=== PATIENT | female | born 1955 | race Hispanic/Latino ===

== ENCOUNTER 2017-04-06 22:19 | Inpatient (IN) | payer MEDICARE, OTHER ==
[2017-04-06 22:22] VITALS: BMI 25.8
--- NOTE | 2017-04-06 22:27 | ED PDOC ---
Arrival/HPI - General Time Seen by Provider: 04/06/17 22:23 Historian: Patient, EMS - History of Present Illness Narrative History of Present Illness (Text): 04/06/17 22:23 Philly Sepulveda is a 61 year old female smoker, whose past medical history includes COPD, breast cancer, pasroxysmal atrail fibrillation, and hypertension, who presents to the Emergency department brought in by EMS complaining of worsening shortness of breath and cough throughout today. Patient received multiple nebulizer treatments and IV Solu-medrol in the field, with some improvement. Patient denies any fever, chills, chest pain, nausea, vomiting, diarrhea, neck pain, headache, dizziness, or any other complaints. PMD: Dr. Lyons Time/Duration: Other (today) Symptom Onset: Gradual Symptom Course: Unchanged Activities at Onset: Light Context: Home Past Medical History - Provider Review Nursing Documentation Reviewed: Yes - Tetanus Immunization Tetanus Immunization: Unknown - Cardiac Hx Cardiac Disorders: Yes Hx Cardiac Arrhythmia: Yes (afib) Hx Hypertension: Yes - Pulmonary Hx Respiratory Disorders: Yes Hx Chronic Obstructive Pulmonary Disease (COPD): Yes Hx Emphysema: Yes Hx Pneumonia: Yes - Neurological Hx Neurological Disorder: No - HEENT Hx HEENT Disorder: Yes (uses glasses) - Renal Hx Renal Disorder: No - Endocrine/Metabolic Hx Endocrine Disorders: Yes (Borderline Diabetes) - Hematological/Oncological Hx Blood Disorders: Yes Hx Cancer: Yes (left breast 1993) - Integumentary Hx Dermatological Disorder: No - Musculoskeletal/Rheumatological Hx Falls: No - Gastrointestinal Hx Gastrointestinal Disorders: Yes (IBS) - Genitourinary/Gynecological Hx Genitourinary Disorders: No - Psychiatric Hx Substance Use: No - Surgical History Hx Mastectomy: Yes Hx Orthopedic Surgery: Yes - Anesthesia Hx Anesthesia: Yes Hx Anesthesia Reactions: No Hx Malignant Hyperthermia: No - Suicidal Assessment Feels Threatened In Home Enviroment: No Family/Social History - Physician Review Nursing Documentation Reviewed: Yes Family/Social History: Unknown Family HX Smoking Status: Heavy Smoker > 10 Cigarettes Daily Hx Alcohol Use: Yes Hx Substance Use: No Hx Substance Use Treatment: No Allergies/Home Meds Allergies/Adverse Reactions: Allergies No Known Allergies Allergy (Verified 04/06/17 22:22) Home Medications: Home Meds Medication Instructions Recorded Confirmed Alprazolam [Xanax] 0.25 mg PO Q6 04/06/17 04/06/17 Promethazine/Phenyleph/Codeine 118 ml PO DAILY 04/06/17 04/06/17 [[id number] Syrup] Sotalol HCl [Sotalol AF] 80 mg PO DAILY 04/06/17 04/06/17 Sotalol [Betapace] 40 mg PO HS 04/06/17 04/06/17 Review of Systems - Physician Review All systems were reviewed & negative as marked: Yes - Review of Systems Constitutional: Normal Eyes: Normal ENT: Normal Respiratory: SOB, Cough Cardiovascular: Normal. absent: Chest Pain Gastrointestinal: Normal. absent: Abdominal Pain, Diarrhea, Nausea, Vomiting Genitourinary Female: Normal. absent: Dysuria, Frequency, Hematuria, Urine Output Changes Musculoskeletal: Normal. absent: Back Pain, Neck Pain Skin: Normal. absent: Rash Neurological: Normal. absent: Headache, Dizziness Endocrine: Normal Hemo/Lymphatic: Normal Psychiatric: Normal Physical Exam Vital Signs Reviewed: Yes Vital Signs Temp Pulse Resp BP Pulse Ox 04/06/17 22:30 97.5 F L 88 26 H 155/89 H 90 L Temperature: Afebrile Blood Pressure: Normal Pulse: Regular Respiratory Rate: Normal Appearance: Positive for: Well-Appearing, Non-Toxic, Comfortable Pain Distress: None Mental Status: Positive for: Alert and Oriented X 3 - Systems Exam Head: Present: Atraumatic, Normocephalic Pupils: Present: PERRL Extroacular Muscles: Present: EOMI Conjunctiva: Present: Normal Ears: Present: Normal, NORMAL TM, Normal Canal. No: Erythema, TM Bulging, Fluid Mouth: Present: Moist Mucous Membranes Pharnyx: Present: Normal. No: ERYTHEMA, EXUDATE, TONSILS ENLARGED, Peritonsilar Swelling, Uvular Deviation, Muffled/Hoarse Voice, Strider, Soft Palate/Uvular Edema Nose (External): Present: Atraumatic Nose (Internal): Present: Normal Inspection Neck: Present: Normal Range of Motion Respiratory/Chest: Present: Decreased Breath Sounds (Decreased breath sounds bilaterally). No: Respiratory Distress, Accessory Muscle Use Cardiovascular: Present: Regular Rate and Rhythm, Normal S1, S2. No: Murmurs Abdomen: Present: Normal Bowel Sounds. No: Tenderness, Distention, Peritoneal Signs Back: Present: Normal Inspection Upper Extremity: Present: Normal Inspection. No: Cyanosis, Edema Lower Extremity: Present: Normal Inspection. No: Edema Neurological: Present: GCS=15, CN II-XII Intact, Speech Normal Skin: Present: Warm, Dry, Normal Color. No: Rashes Psychiatric: Present: Alert, Oriented x 3, Normal Insight, Normal Concentration Medical Decision Making ED Course and Treatment: 04/06/17 22:24 Impression: 61 year old female complaining of shortness of breath and cough today. Differential Diagnosis included but are not limited to: COPD exacerbation vs. bronchitis vs. pneumonia vs. CHF Plan: -- EKG -- CXR -- Labs, cardiac enzymes, BNP -- Duoneb -- Reassess and disposition Prior Visits: Notes and results from previous visits were reviewed. On 03/04/2015, pt was seen in the Emergency department for shortness of breath, dry cough, sore throat, and body aches. Pt was admitted to the hospital for further evaluation. Progress Notes: 04/06/17 22:37 Reviewed EKG, NSR at 86 bpm. Septal infarct. Non-specific ST/T wave changes. 04/07/17 00:50 CXR reviewed, shows no acute processes. 04/07/17 01:[address] Lyons, who is aware and agrees with plan. Accepts pt in to his service. Requests ICU consult. 04/07/17 01:[address] Christianson, childcare administrator, who is aware and agrees to evaluate pt. vice president education notified. 04/07/17 02:[address] Christianson, present in Emergency room to re-evaluate pt and who also discussed with Dr. Lyons, states pt can go to Telemetry. Pt will be admitted to Telemetry for COPD exacerbation. - Lab Interpretations Lab Results: 04/06/17 22:57 04/06/17 22:49 Lab Results 04/07/17 00:40: pCO2 43, pO2 42.0 L*, HCO3 26.6, ABG pH 7.40, ABG Total CO2 27.9 , ABG O2 Saturation 81.6 L, ABG O2 Content 18.2, ABG Base Excess 1.4, ABG Hemoglobin 16.6, ABG Carboxyhemoglobin 3.2 H, POC ABG HHb (Measured) 17.7 H, ABG Methemoglobin 0.6, ABG O2 Capacity 22.3, Hgb O2 Saturation 78.5 L, FiO2 28.0 04/06/17 22:57: WBC 8.9 D, RBC 4.73, Hgb 15.9, Hct 45.8, MCV 96.8, MCH 33.6, MCHC 34.7, RDW 12.0, Plt Count 252, MPV 10.6 04/06/17 22:49: Sodium 136, Potassium 4.2, Chloride 100, Carbon Dioxide 25, Anion Gap 15, BUN 10, Creatinine 0.6 L, Est GFR ( Amer) > 60, Est GFR ( Non-Af Amer) > 60, Random Glucose 121 H, Calcium 9.9, Total Bilirubin 1.8 H, AST 33, ALT 29, Alkaline Phosphatase 78, Lactate Dehydrogenase 557, Total Creatine Kinase 109, Troponin I < 0.01, NT-Pro-B Natriuret Pep 104, Total Protein 7.8, Albumin 4.5, Globulin 3.3, Albumin/Globulin Ratio 1.4 04/06/17 22:49: PT 12.3, INR 1.13 H, APTT 28.1 I have reviewed the lab results: Yes - RAD Interpretation Radiology Orders: 04/07/17 00:33 CHEST PORTABLE [RAD] Stat Continuous Improvement Consultant: ED Physician - EKG Interpretation Interpreted by ED Physician: Yes Type: 12 lead EKG - Medication Orders Current Medication Orders: Ceftriaxone Sodium (Rocephin 1 Gram Ivpb) 1 gm in 100 mls @ 200 mls/hr IV ONCE STA PRN Reason: Protocol Stop: 04/07/17 02:07 Azithromycin (Zithromax 500mg In Ns) 500 mg in 250 mls @ 166.667 mls/hr IV STAT STA PRN Reason: Protocol Stop: 04/07/17 03:07 Discontinued Medications Albuterol/Ipratropium (Duoneb 3 Mg/0.5 Mg (3 Ml) Ud) 3 ml IH ONCE STA Stop: 04/06/17 22:30 Last Admin: 04/06/17 22:41 Dose: 3 ml Alprazolam (Xanax) 0.25 mg PO ONCE ONE Stop: 04/07/17 01:33 Last Admin: 04/07/17 01:50 Dose: 0.25 mg - Scribe Statement The provider has reviewed the documentation as recorded by the Mony Chong All medical record entries made by the Mony were at my direction and personally dictated by me. I have reviewed the chart and agree that the record accurately reflects my personal performance of the history, physical exam, medical decision making, and the department course for this patient. I have also personally directed, reviewed, and agree with the discharge instructions and disposition. Disposition/Present on Arrival - Present on Arrival Any Indicators Present on Arrival: No History of DVT/PE: No History of Uncontrolled Diabetes: No Urinary Catheter: No History of Decub. Ulcer: No History Surgical Site Infection Following: None - Disposition Have Diagnosis and Disposition been Completed?: Yes Diagnosis: COPD (chronic obstructive pulmonary disease) with chronic bronchitis Disposition: HOSPITALIZED Disposition Time: 01:47 Patient Plan: Admission Patient Problems: Current Active Problems Problem Status Onset COPD (chronic obstructive pulmonary disease) with chronic bronchitis Acute Condition: GUARDED Referrals: Fernando Lyons MD [Primary Care Provider] - Follow up with primary
[2017-04-06] MEDS ORDERED: Albuterol-Ipratrop 3 mg / 0.5 (3 ml) UD IH STA (22:29)
[2017-04-06 23:17] LABS: ALB/GLOB RATIO 1.4 (1.1-1.8); BILIRUBIN,TOTAL 1.8 mg/dL (0.2-1.3); CALCIUM 9.9 mg/dL (8.4-10.5); GFR AFRICAN-AMERICAN > 60; GLUCOSE,RANDOM 121 mg/dL (70-110); TOTAL PROTEIN 7.8 g/dL (5.8-8.3)
[2017-04-06 23:23] LABS: ALKALINE PHOSPHATASE 78 U/L (38-126); ALT/SGPT 29 U/L (7-56); AST/SGOT 33 U/L (14-36); BLOOD UREA NITROGEN 10 mg/dL (7-21); CARBON DIOXIDE 25 mmol/L (21-33); CHLORIDE 100 mmol/L (98-107); POTASSIUM 4.2 mmol/L (3.6-5.0); SODIUM 136 mmol/L (132-148)
[2017-04-06 23:27] LABS: TROPONIN I < 0.01 ng/mL
[2017-04-06 23:37] LABS: HEMATOCRIT 45.8 % (36.0-48.0); MEAN CELL VOLUME 96.8 fl (80.0-105.0); MEAN CORPUSCULAR HEMOGLOBIN 33.6 pg (25.0-35.0); MEAN CORPUSCULAR HGB CONC 34.7 g/dl (31.0-37.0); MEAN PLATELET VOLUME 10.6 fl (7.0-11.0); WHITE BLOOD COUNT 8.9 10^3/ul (4.5-11.0)
[2017-04-06 23:50] LABS: INR 1.13 (0.93-1.08); PARTIAL THROMBOPLASTIN TIME 28.1 Seconds (25.1-36.5)
[2017-04-07 00:53] LABS: ARTERIAL BLOOD GAS HCO3 26.6 mmol/L (21-28); ARTERIAL BLOOD GAS O2 CAPACITY 22.3 mL/dl (16-24); ARTERIAL BLOOD GAS O2 CONTENT 18.2 ML/dl (15-23); ARTERIAL BLOOD HGB O2 SAT 78.5 % (95.0-98.0); CARBOXYHEMOGLOBIN 3.2 % (0.5-1.5); HHB 17.7 % (0-5); METHEMOGLOBIN 0.6 % (0.0-3.0)
[2017-04-07] MEDS ORDERED: cefTRIAXone 1 gm 1 GM/100 ML BAG IV STA (01:38)
[2017-04-07] MEDS ORDERED: Azithromycin 500MG/NS 250ml 500 MG/250 ML BAG IV STA (01:38)
--- NOTE | 2017-04-07 02:07 | CP.PCM.HP ---
<Krunal Vargas - Last Filed: 04/07/17 02:25> History of Present Illness - History of Present Illness History of Present Illness: CC: SOB Subjective: HPI: Patient is a 61 year old female with past medical history of COPD, breast cancer , paroxysmal atrial fibrillation, hypertension, and anxiety who presents to the emergency department via EMS for evaluation and treatment of worsening shortness of breath and productive cough throughout today. Patient denies specific provoking events. As per ED note the patient received multiple nebulizer treatments and IV Solu-medrol in the field, with some improvement. Denies recent travel and sick contacts. Admits to continued smoking. Patient denies intractable headache, fever, chills, dizziness, blurry vision, ringing in the ears, chest pain,, abdominal pain, nausea, vomiting, diarrhea, constipation, and urinary symptoms. ROS: 12 point review of systems negative except as indicated in HPI PMHx: COPD, breast cancer, paroxysmal atrial fibrillation, and hypertension PSHx: s/p left breast surgery 1992 Family Hx: noncontributory Social Hx: 2 glasses of wine with dinner everyday, smokes 1ppd for 45 years, denies illicit drug use Medications: Please see medication reconciliation Physical Examination: - Constitutional Appears: Non-toxic, No Acute Distress - Head Exam Head Exam: atraumatic, normocephalic - Eye Exam Eye Exam: Normal appearance, PERRL. absent: Scleral icterus - ENT Exam ENT Exam: Mucous Membranes Moist - Neck Exam Neck exam: Normal Inspection - Respiratory Exam Respiratory Exam: decreased breath sounds bilaterally - Cardiovascular Exam Cardiovascular Exam: +S1, +S2. absent: Gallop, JVD - GI/Abdominal Exam GI & Abdominal Exam: Normal Bowel Sounds, absent: Distended, Guarding, Pulsatile Mass, Rebound, Rigid - Extremities Exam Extremities exam: Negative for: calf tenderness - Neurological Exam Neurological exam: Patient is awake, alert, responds to verbal stimuli, answers questions appropriately, follows commands, and moves extremities past midline - Psychiatric Exam Psychiatric exam: Normal Affect, Normal Mood - Skin Skin Exam: warm and dry Assessment and Plan: Patient is a 61 year old female with past medical history of COPD, breast cancer , paroxysmal atrial fibrillation, and hypertension who is admitted for evaluation and treatment of worsening shortness of breath and cough throughout today. Acute on Chronic COPD Exacerbation - duobnebs q4 scheduled - solumedrol 40mg IV q8 - bipap 12 6 30% - antibtiotics- ceftriaxone and azithromycin - abg reviewed and appreciated- hypoxemic, elevated carboxyhemoglobin; repeat abg in AM Paroxysmal Atrial Fibrillation - HR and BP reviewed, trended, and appreciated - EKG reviewed and appreciated- NSR HR 86 bpm, Qtc 437, no defining ST T wave changes - rate control with sotalol 80 mg PO daily - consider cardiology consult pending patients clinical course Hx of Htn - continue sotalol 80 mg PO Daily - consider hydralazine 5mg IV q6 prn SBP > 180, holding parameters- do not administer if HR is > 100 bpm Hx of Anxiety - continue with home xanax Tobacco Abuse - nicotine patch offered - smoking cessation advised - patient education provided on dangers of tobacco abuse Prophylaxis - DVT ppx- subq heparin as per miguel score - GI ppx- famotidine Patient case discussed with and plan approved by attending physician. 04/07/17 01:22 Present on Admission - Present on Admission Any Indicators Present on Admission: No Past Patient History - Tetanus Immunizations Tetanus Immunization: Unknown - Past Social History Smoking Status: Heavy Smoker > 10 Cigarettes Daily - CARDIAC Hx Cardiac Disorders: Yes Hx Cardia Arrhythmia: Yes (afib) Hx Hypertension: Yes - PULMONARY Hx Respiratory Disorders: Yes Hx Chronic Obstructive Pulmonary Disease (COPD): Yes Hx Emphysema: Yes Hx Pneumonia: Yes - NEUROLOGICAL Hx Neurological Disorder: No - HEENT Hx HEENT Problems: Yes (uses glasses) - RENAL Hx Chronic Kidney Disease: No - ENDOCRINE/METABOLIC Hx Endocrine Disorders: Yes (Borderline Diabetes) - HEMATOLOGICAL/ONCOLOGICAL Hx Blood Disorders: Yes Hx Cancer: Yes (left breast 1992) - INTEGUMENTARY Hx Dermatological Problems: No - MUSCULOSKELETAL/RHEUMATOLOGICAL Hx Falls: No - GASTROINTESTINAL Hx Gastrointestinal Disorders: Yes (IBS) - GENITOURINARY/GYNECOLOGICAL Hx Genitourinary Disorders: No - PSYCHIATRIC Hx Substance Use: No - SURGICAL HISTORY Hx Mastectomy: Yes Hx Orthopedic Surgery: Yes - ANESTHESIA Hx Anesthesia: Yes Hx Anesthesia Reactions: No Hx Malignant Hyperthermia: No Meds Allergies/Adverse Reactions: Allergies Allergy/AdvReac Type Severity Reaction Status Date / Time No Known Allergies Allergy Verified 04/10/17 22:04 Results - Vital Signs Recent Vital Signs: Last Vital Signs Temp 97.5 F L 04/06/17 22:30 Pulse 88 04/06/17 22:30 Resp 26 H 04/06/17 22:30 BP 155/89 H 04/06/17 22:30 Pulse Ox 90 L 04/06/17 22:30 - Labs Result Diagrams: 04/06/17 22:57 04/06/17 22:49 Labs: Laboratory Results - last 24 hr 04/06/17 04/06/17 04/06/17 22:49 22:49 22:57 WBC 8.9 D RBC 4.73 Hgb 15.9 Hct 45.8 MCV 96.8 MCH 33.6 MCHC 34.7 RDW 12.0 Plt Count 252 MPV 10.6 PT 12.3 INR 1.13 H APTT 28.1 pCO2 pO2 HCO3 ABG pH ABG Total CO2 ABG O2 Saturation ABG O2 Content ABG Base Excess ABG Hemoglobin ABG Carboxyhemoglobin POC ABG HHb (Measured) ABG Methemoglobin ABG O2 Capacity Hgb O2 Saturation FiO2 Sodium 136 Potassium 4.2 Chloride 100 Carbon Dioxide 25 Anion Gap 15 BUN 10 Creatinine 0.6 L Est GFR ( Amer) > 60 Est GFR (Non-Af Amer) > 60 Random Glucose 121 H Calcium 9.9 Total Bilirubin 1.8 H AST 33 ALT 29 Alkaline Phosphatase 78 Lactate Dehydrogenase 557 Total Creatine Kinase 109 Troponin I < 0.01 NT-Pro-B Natriuret Pep 104 Total Protein 7.8 Albumin 4.5 Globulin 3.3 Albumin/Globulin Ratio 1.4 04/07/17 00:40 WBC RBC Hgb Hct MCV MCH MCHC RDW Plt Count MPV PT INR APTT pCO2 43 pO2 42.0 L* HCO3 26.6 ABG pH 7.40 ABG Total CO2 27.9 ABG O2 Saturation 81.6 L ABG O2 Content 18.2 ABG Base Excess 1.4 ABG Hemoglobin 16.6 ABG Carboxyhemoglobin 3.2 H POC ABG HHb (Measured) 17.7 H ABG Methemoglobin 0.6 ABG O2 Capacity 22.3 Hgb O2 Saturation 78.5 L FiO2 28.0 Sodium Potassium Chloride Carbon Dioxide Anion Gap BUN Creatinine Est GFR ( Amer) Est GFR (Non-Af Amer) Random Glucose Calcium Total Bilirubin AST ALT Alkaline Phosphatase Lactate Dehydrogenase Total Creatine Kinase Troponin I NT-Pro-B Natriuret Pep Total Protein Albumin Globulin Albumin/Globulin Ratio <Fernando Lyons U - Last Filed: 04/11/17 08:00> Results - Vital Signs Recent Vital Signs: Last Vital Signs Temp 97.8 F 04/10/17 08:13 Pulse 68 04/10/17 08:13 Resp 22 04/10/17 08:13 BP 128/75 04/10/17 09:46 Pulse Ox 91 L 04/10/17 08:13 - Labs Result Diagrams: 04/09/17 06:20 04/09/17 06:20 Assessment & Plan - Assessment and Plan (Free Text) Assessment: Assessment and Plan: Patient is a 61 year old female with past medical history of COPD, breast cancer , paroxysmal atrial fibrillation, and hypertension who is admitted for evaluation and treatment of worsening shortness of breath and cough throughout today. Acute on Chronic COPD Exacerbation - duobnebs q4 scheduled - solumedrol 40mg IV q8 - bipap 12 6 30% - antibtiotics- ceftriaxone and azithromycin - abg reviewed and appreciated- hypoxemic, elevated carboxyhemoglobin; repeat abg in AM Paroxysmal Atrial Fibrillation - HR and BP reviewed, trended, and appreciated - EKG reviewed and appreciated- NSR HR 86 bpm, Qtc 437, no defining ST T wave changes - rate control with sotalol 80 mg PO daily - consider cardiology consult pending patients clinical course Hx of Htn - continue sotalol 80 mg PO Daily - consider hydralazine 5mg IV q6 prn SBP > 180, holding parameters- do not administer if HR is > 100 bpm Hx of Anxiety - continue with home xanax Tobacco Abuse - nicotine patch offered - smoking cessation advised - patient education provided on dangers of tobacco abuse Prophylaxis - DVT ppx- subq heparin as per miguel score - GI ppx- famotidine 1.Acute exacerbation of chronic obstructive pulmonary disease with hypoxemia. 2. 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 3. Hypoxic respiratory failure, bilevel positive airway pressure requiring. 4. Acute exacerbation of chronic obstructive pulmonary disease with bronchospasm and wheezing. 5. Leukocytosis with granulocytosis. 6. Hypoxemia. 7. Prediabetes with hemoglobin A1c of 5.9. 8. Hypercholesterolemia with elevated LDL of almost 300. 9. History of paroxysmal atrial fibrillation. 10. Anxiety disorder. 11. Nicotine dependence. 12. Bilateral atelectasis of the right middle lobe, left lower lobe, and left lingula. 13. Sentry lobar emphysema bilaterally. 14. Right upper lobe 3-mm nodule and right lower lobe 5-mm subpleural nodule and 3-mm left lower lobe nodule. 15. Coronary artery calcification. 16. Left clavicle old fracture, unfused. 17. 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 18. Left breast carcinoma, status post left mastectomy and left breast prosthesis. 19. Nonspecific left perinephric stranding. 20. Resolving bronchospasm. 21. History of poor compliance and noncompliance with failure to take medications and medical followup.
[2017-04-07] MEDS ORDERED: Albuterol-Ipratrop 3 mg / 0.5 (3 ml) UD IH SCH (02:15)
[2017-04-07] MEDS: MethylPREDNISolone 40 mg Vial IVP SCH ×3 (03:08→17:32)
[2017-04-07] MEDS ORDERED: DiphenhydrAMINE 12.5 mg/5 ml LIQ UD (5 ml) PO STA (03:09)
[2017-04-07] MEDS: Albuterol-Ipratrop 3 mg / 0.5 (3 ml) UD IH SCH ×5 (05:00→20:20)
--- NOTE | 2017-04-07 05:51 | CP.PCM.CON ---
History of Present Illness - History of Present Illness History of Present Illness: ICU Consult Note for Dr. Christianson Reason for consult: COPD exacerbation 61yo female PMHx COPD, breast cancer, paroxysmal atrial fibrillation, hypertension, and anxiety who presents to the ED with worsening SOB and productive cough. Patient had received multiple nebulizer treatments and IV Solu -medrol in the field, with some improvement. Denies recent travel and sick contacts. Admits to continued smoking. Patient denies intractable headache, fever, chills, dizziness, blurry vision, ringing in the ears, chest pain,, abdominal pain, nausea, vomiting, diarrhea, constipation, and urinary symptoms. PMHx: COPD, breast cancer, paroxysmal atrial fibrillation, and hypertension PSHx: s/p left breast surgery 1992 Family Hx: noncontributory Social Hx: 2 glasses of wine with dinner everyday, smokes 1ppd for 45 years, denies illicit drug use Medications: Please see medication reconciliation Review of Systems - Review of Systems All systems: reviewed and no additional remarkable complaints except - Constitutional Constitutional: As Per HPI. absent: Chills, Fever - EENT Eyes: As Per HPI. absent: Blurred Vision Ears: As Per HPI. absent: Dizziness Nose/Mouth/Throat: As Per HPI. absent: Sore Throat - Cardiovascular Cardiovascular: As Per HPI. absent: Chest Pain, Leg Edema - Respiratory Respiratory: As Per HPI, Cough, Dyspnea - Gastrointestinal Gastrointestinal: As Per HPI. absent: Abdominal Pain, Constipation, Diarrhea, Nausea, Vomiting - Genitourinary Genitourinary: As Per HPI. absent: Dysuria - Musculoskeletal Musculoskeletal: As Per HPI. absent: Numbness, Tingling - Integumentary Integumentary: As Per HPI. absent: Dry Skin - Neurological Neurological: As Per HPI. absent: Dizziness, Headaches - Endocrine Endocrine: As Per HPI. absent: Polydipsia, Polyuria - Hematologic/Lymphatic Hematologic: As Per HPI. absent: Easy Bleeding, Easy Bruising Past Patient History - Tetanus Immunizations Tetanus Immunization: Unknown - Past Social History Smoking Status: Light Smoker < 10 Cigarettes Daily - CARDIAC Hx Hypertension: Yes - PULMONARY Hx Chronic Obstructive Pulmonary Disease (COPD): Yes - NEUROLOGICAL Hx Neurological Disorder: No - HEENT Hx HEENT Problems: Yes (uses glasses) - RENAL Hx Chronic Kidney Disease: No - ENDOCRINE/METABOLIC Hx Endocrine Disorders: Yes (Borderline Diabetes) - HEMATOLOGICAL/ONCOLOGICAL Hx Blood Disorders: Yes Hx Cancer: Yes (left breast 1993) - INTEGUMENTARY Hx Dermatological Problems: No - MUSCULOSKELETAL/RHEUMATOLOGICAL Hx Falls: Yes - GASTROINTESTINAL Hx Gastrointestinal Disorders: Yes (IBS) - GENITOURINARY/GYNECOLOGICAL Hx Genitourinary Disorders: No - PSYCHIATRIC Hx Substance Use: No - SURGICAL HISTORY Hx Mastectomy: Yes Hx Orthopedic Surgery: Yes - ANESTHESIA Hx Anesthesia: Yes Hx Anesthesia Reactions: No Hx Malignant Hyperthermia: No Meds Allergies/Adverse Reactions: Allergies Allergy/AdvReac Type Severity Reaction Status Date / Time No Known Allergies Allergy Verified 04/06/17 22:22 - Medications Medications: Current Medications Albuterol/Ipratropium (Duoneb 3 Mg/0.5 Mg (3 Ml) Ud) 3 ml IH [id number] [facility] Last Admin: 04/07/17 05:00 Dose: 3 ml Alprazolam (Xanax) 0.25 mg PO Q6 ANGLE PRN Reason: Protocol Stop: 04/14/17 06:01 Last Admin: 04/07/17 05:39 Dose: 0.25 mg Heparin Sodium (Porcine) (Heparin) 5,000 units SC Q8 ANGLE PRN Reason: Protocol Last Admin: 04/07/17 05:40 Dose: 5,000 units Azithromycin (Zithromax 500mg In Ns) 500 mg in 250 mls @ 167 mls/hr IVPB DAILY [facility] PRN Reason: Protocol Ceftriaxone Sodium (Rocephin 1 Gram Ivpb (D5w)) 1 gm in 100 mls @ 100 mls/hr IVPB DAILY ANGLE PRN Reason: Protocol Methylprednisolone (Solu-Medrol) 40 mg IVP Q8H [facility] Last Admin: 04/07/17 03:08 Dose: 40 mg Nicotine (Nicoderm Cq) 1 patch TD DAILY PRN PRN Reason: URGE TO SMOKE Sotalol HCl (Betapace) 80 mg PO DAILY [facility] Physical Exam - Constitutional Appears: Non-toxic, No Acute Distress - Head Exam Head Exam: NORMAL INSPECTION, NORMOCEPHALIC - Eye Exam Eye Exam: EOMI, Normal appearance, PERRL. absent: Conjunctival injection, Scleral icterus - ENT Exam ENT Exam: Mucous Membranes Moist - Neck Exam Neck exam: Positive for: Full Rom, Normal Inspection - Respiratory Exam Respiratory Exam: Decreased Breath Sounds, Wheezes, NORMAL BREATHING PATTERN - Cardiovascular Exam Cardiovascular Exam: Tachycardia, +S1, +S2 - GI/Abdominal Exam GI & Abdominal Exam: Normal Bowel Sounds, Soft. absent: Tenderness - Extremities Exam Extremities exam: Positive for: normal inspection, pedal pulses present. Negative for: pedal edema, tenderness - Neurological Exam Neurological exam: Alert, CN II-XII Intact, Oriented x3 - Psychiatric Exam Psychiatric exam: Normal Affect, Normal Mood - Skin Skin Exam: Dry, Intact, Normal Color, Warm Results - Vital Signs Recent Vital Signs: Last Vital Signs Temp 97.5 F L 04/06/17 22:30 Pulse 91 H 04/07/17 02:34 Resp 20 04/07/17 04:43 BP 146/74 04/07/17 02:34 Pulse Ox 91 L 04/07/17 02:34 - Labs Result Diagrams: 04/06/17 22:57 04/06/17 22:49 Assessment & Plan - Assessment and Plan (Free Text) Assessment: 61yo female PMHx COPD, breast cancer, paroxysmal atrial fibrillation, hypertension, and anxiety who presents to the ED with worsening SOB and productive cough. Plan: Patient is hemodynamically stable and protecting airway. Started on scheduled duoneb and IV solumedrol and antibiotics Repeat ABG in the AM BiPAP PRN Upon reviewing labwork and vitals patient is deemed not a candidate for ICU and will benefit from TELE monitoring Discussed with Dr. Meghan Zamora PGY2
[2017-04-07 08:06] LABS: BASO # 0.01 K/mm3 (0.0-2.0); BASO % 0.2 % (0.0-3.0); GRAN # 5.25 (1.4-6.5); GRAN % 94.4 % (50.0-68.0); HEMATOCRIT 48.5 % (36.0-48.0); LYMPH # 0.2 (1.2-3.4); LYMPH % 4.3 % (22.0-35.0); MEAN CELL VOLUME 96.8 fl (80.0-105.0); MEAN CORPUSCULAR HEMOGLOBIN 32.9 pg (25.0-35.0); MEAN PLATELET VOLUME 10.4 fl (7.0-11.0); MONO # 0.1 (0.1-0.6); MONO % 1.1 % (1.0-6.0); PLATELET COUNT 256 10^3/uL (120.0-450.0); RED CELL DISTRIBUTION WIDTH 12.1 % (11.5-14.5); WHITE BLOOD COUNT 5.6 10^3/ul (4.5-11.0)
[2017-04-07 08:18] LABS: ALB/GLOB RATIO 1.3 (1.1-1.8); ALKALINE PHOSPHATASE 80 U/L (38-126); ALT/SGPT 31 U/L (7-56); AST/SGOT 27 U/L (14-36); BILIRUBIN,TOTAL 1.1 mg/dL (0.2-1.3); BLOOD UREA NITROGEN 10 mg/dL (7-21); CALCIUM 9.9 mg/dL (8.4-10.5); CARBON DIOXIDE 27 mmol/L (21-33); CHLORIDE 103 mmol/L (98-107); GFR AFRICAN-AMERICAN > 60; GLUCOSE,RANDOM 160 mg/dL (70-110); SODIUM 140 mmol/L (132-148); TOTAL PROTEIN 7.8 g/dL (5.8-8.3)
[2017-04-07 08:26] LABS: CHOLESTEROL 370 mg/dL (130-200)
--- NOTE | 2017-04-07 08:31 | CP.PCM.HP ---
History of Present Illness - History of Present Illness History of Present Illness: This is a 61 year old female with history chronic obstructive pulmonary disease , Breast cancer, atrial fibrillation, hypertension and anxiety who presented to the Emergency Room for cough and shortness of breath. She denies fever, chills, nausea, vomiting or chest pain. She received nebulizer treatments and IV solumedrol in the field with some improvement. Present on Admission - Present on Admission Any Indicators Present on Admission: No History of DVT/PE: No History of Uncontrolled Diabetes: No Urinary Catheter: No Decubitus Ulcer Present: No Review of Systems - Cardiovascular Cardiovascular: absent: Chest Pain, Diaphoresis - Respiratory Respiratory: As Per HPI - Gastrointestinal Gastrointestinal: absent: Abdominal Pain, Nausea, Vomiting Past Patient History - Tetanus Immunizations Tetanus Immunization: Unknown - Past Social History Smoking Status: Light Smoker < 10 Cigarettes Daily - CARDIAC Hx Hypertension: Yes - PULMONARY Hx Chronic Obstructive Pulmonary Disease (COPD): Yes - NEUROLOGICAL Hx Neurological Disorder: No - HEENT Hx HEENT Problems: Yes (uses glasses) - RENAL Hx Chronic Kidney Disease: No - ENDOCRINE/METABOLIC Hx Endocrine Disorders: Yes (Borderline Diabetes) - HEMATOLOGICAL/ONCOLOGICAL Hx Blood Disorders: Yes Hx Cancer: Yes (left breast 1993) - INTEGUMENTARY Hx Dermatological Problems: No - MUSCULOSKELETAL/RHEUMATOLOGICAL Hx Falls: Yes - GASTROINTESTINAL Hx Gastrointestinal Disorders: Yes (IBS) - GENITOURINARY/GYNECOLOGICAL Hx Genitourinary Disorders: No - PSYCHIATRIC Hx Substance Use: No - SURGICAL HISTORY Hx Mastectomy: Yes Hx Orthopedic Surgery: Yes - ANESTHESIA Hx Anesthesia: Yes Hx Anesthesia Reactions: No Hx Malignant Hyperthermia: No Meds Allergies/Adverse Reactions: Allergies Allergy/AdvReac Type Severity Reaction Status Date / Time No Known Allergies Allergy Verified 04/06/17 22:22 Physical Exam - Constitutional Appears: No Acute Distress - Head Exam Head Exam: ATRAUMATIC, NORMOCEPHALIC - Respiratory Exam Respiratory Exam: Decreased Breath Sounds, Wheezes - Cardiovascular Exam Cardiovascular Exam: +S1, +S2 - GI/Abdominal Exam GI & Abdominal Exam: Normal Bowel Sounds, Soft. absent: Tenderness - Neurological Exam Neurological exam: Alert, Oriented x3 Results - Vital Signs Recent Vital Signs: Last Vital Signs Temp 97.3 F L 04/07/17 06:00 Pulse 83 04/07/17 06:00 Resp 20 04/07/17 06:00 BP 126/85 04/07/17 06:00 Pulse Ox 94 L 04/07/17 06:00 - Labs Result Diagrams: 04/07/17 07:25 04/07/17 07:25 Labs: Laboratory Results - last 24 hr 04/07/17 04/07/17 07:25 07:25 WBC 5.6 D RBC 5.01 Hgb 16.5 H Hct 48.5 H MCV 96.8 MCH 32.9 MCHC 34.0 RDW 12.1 Plt Count 256 MPV 10.4 Gran % 94.4 H Lymph % (Auto) 4.3 L Brantley % (Auto) 1.1 Eos % (Auto) 0.0 L Baso % (Auto) 0.2 Gran # 5.25 Lymph # 0.2 L Brantley # 0.1 Eos # 0.0 Baso # 0.01 Sodium 140 Potassium 4.0 Chloride 103 Carbon Dioxide 27 Anion Gap 15 BUN 10 Creatinine 0.6 L Est GFR ( Amer) > 60 Est GFR (Non-Af Amer) > 60 Random Glucose 160 H Calcium 9.9 Total Bilirubin 1.1 AST 27 ALT 31 Alkaline Phosphatase 80 Total Protein 7.8 Albumin 4.4 Globulin 3.4 Albumin/Globulin Ratio 1.3 Triglycerides 75 HDL Cholesterol 74 H Assessment & Plan - Assessment and Plan (Free Text) Assessment: Acute exacerbation of COPD History of breast cancer s/p surgery 1992 Atrial Fibrillation hypertension Anxiety Plan: continue duoneb, IV rocephin and zithromax and solumedrol continue Sotalol for atrial fibrillation continue Xanax for anxiety Patient is on Heparin for DVT prophylaxis Patient has known borderline diabetes; HbA1c is pending.
--- NOTE | 2017-04-07 09:33 | RAD ---
HISTORY: sob COMPARISON: Comparison chest dated 03/04/2017. FINDINGS: LUNGS: No mild linear scarring and or atelectasis both lung bases. . Slight blunting left CP angle could be due to chronic pleural thickening versus small effusion. PLEURA: As above. No pneumothorax apparent. CARDIOVASCULAR: Normal. OSSEOUS STRUCTURES: Old fracture deformity distal left clavicle new since prior study VISUALIZED UPPER ABDOMEN: Normal. OTHER FINDINGS: Multiple metallic surgical clips again seen in the left axillary soft tissues consistent with prior lymph node dissection. There is asymmetry of the breast tissue ; rule out prior left mastectomy or partial mastectomy IMPRESSION: Mild linear atelectasis or scarring both lung bases. Slight blunting left CP angle could be due to chronic pleural thickening or tiny effusion
[2017-04-07 09:54] LABS: NEUTROPHIL 95 % (50.0-70.0); PLATELET ESTIMATE NORMAL (NORMAL)
[2017-04-07 10:26] LABS: ARTERIAL BLOOD GAS HCO3 25.4 mmol/L (21-28); ARTERIAL BLOOD GAS O2 CAPACITY 20.5 mL/dl (16-24); ARTERIAL BLOOD GAS O2 CONTENT 18.1 ML/dl (15-23); ARTERIAL BLOOD GAS PH 7.36 (7.35-7.45); ARTERIAL BLOOD HGB O2 SAT 85.6 % (95.0-98.0); CARBOXYHEMOGLOBIN 2.4 % (0.5-1.5); HHB 11.4 % (0-5); METHEMOGLOBIN 0.7 % (0.0-3.0)
--- NOTE | 2017-04-07 10:44 | CARD ---
APPROVED REPORT EKG Measurement Heart [id number] <Conclusion> Normal sinus rhythm Septal infarct, age undetermined Abnormal ECG
[2017-04-07] MEDS: Promethazine/Cod 6.25mg-10mg/5ml Syr UD PO PRN ×2 (12:54→21:54)
[2017-04-08] MEDS: Albuterol-Ipratrop 3 mg / 0.5 (3 ml) UD IH SCH ×6 (00:45→20:56)
[2017-04-08] MEDS: MethylPREDNISolone 40 mg Vial IVP SCH ×3 (02:08→19:34)
[2017-04-08 08:13] LABS: GRAN # 10.41 (1.4-6.5); GRAN % 94.2 % (50.0-68.0); HEMATOCRIT 45.7 % (36.0-48.0); LYMPH # 0.4 (1.2-3.4); LYMPH % 3.3 % (22.0-35.0); MEAN CELL VOLUME 98.9 fl (80.0-105.0); MEAN CORPUSCULAR HEMOGLOBIN 32.9 pg (25.0-35.0); MEAN CORPUSCULAR HGB CONC 33.3 g/dl (31.0-37.0); MEAN PLATELET VOLUME 10.8 fl (7.0-11.0); MONO # 0.3 (0.1-0.6); MONO % 2.5 % (1.0-6.0); RED CELL DISTRIBUTION WIDTH 12.1 % (11.5-14.5); WHITE BLOOD COUNT 11.1 10^3/ul (4.5-11.0)
[2017-04-08 08:32] LABS: ALB/GLOB RATIO 1.3 (1.1-1.8); ALKALINE PHOSPHATASE 66 U/L (38-126); ALT/SGPT 30 U/L (7-56); AST/SGOT 23 U/L (14-36); BILIRUBIN,TOTAL 0.8 mg/dL (0.2-1.3); BLOOD UREA NITROGEN 16 mg/dL (7-21); CALCIUM 9.5 mg/dL (8.4-10.5); CARBON DIOXIDE 28 mmol/L (21-33); CHLORIDE 104 mmol/L (98-107); GFR AFRICAN-AMERICAN > 60; GLUCOSE,RANDOM 161 mg/dL (70-110); POTASSIUM 4.2 mmol/L (3.6-5.0); SODIUM 140 mmol/L (132-148)
--- NOTE | 2017-04-08 08:32 | CP.PCM.PN ---
Subjective - Date & Time of Evaluation Date of Evaluation: 04/08/17 Time of Evaluation: 07:45 - Subjective Subjective: (covering for Dr. Lyons) Patient is seen this morning in room 374 bed 2. She is feeling better she says. She has some shortness of breath when she walks. Objective - Vital Signs/Intake and Output Vital Signs (last 24 hours): Temp Pulse Resp BP Pulse Ox 97.4 F L 77 20 124/83 92 L 04/08/17 06:00 04/08/17 06:00 04/08/17 06:00 04/08/17 06:00 04/08/17 06:00 Intake and Output: 04/08/17 04/08/17 06:59 18:59 Intake Total 480 Output Total 0 Balance 480 - Medications Medications: Current Medications Albuterol/Ipratropium (Duoneb 3 Mg/0.5 Mg (3 Ml) Ud) 3 ml IH [id number] ANGLE Last Admin: 04/08/17 04:40 Dose: 3 ml Alprazolam (Xanax) 0.25 mg PO Q6 ANGLE PRN Reason: Protocol Stop: 04/14/17 06:01 Last Admin: 04/08/17 06:45 Dose: 0.25 mg Heparin Sodium (Porcine) (Heparin) 5,000 units SC Q8 ANGLE PRN Reason: Protocol Last Admin: 04/08/17 06:45 Dose: 5,000 units Azithromycin (Zithromax 500mg In Ns) 500 mg in 250 mls @ 167 mls/hr IVPB DAILY ANGLE PRN Reason: Protocol Ceftriaxone Sodium (Rocephin 1 Gram Ivpb (D5w)) 1 gm in 100 mls @ 100 mls/hr IVPB DAILY ANGLE PRN Reason: Protocol Methylprednisolone (Solu-Medrol) 40 mg IVP Q8H ANGLE Last Admin: 04/08/17 02:08 Dose: 40 mg Nicotine (Nicoderm Cq) 1 patch TD DAILY PRN PRN Reason: URGE TO SMOKE Last Admin: 04/07/17 10:18 Dose: 1 patch Promethazine HCl/Codeine (Phenergan/Codeine Oral Syrup) 5 ml PO Q6H PRN PRN Reason: Cough and congestion Last Admin: 04/07/17 21:54 Dose: 5 ml Sotalol HCl (Betapace) 80 mg PO DAILY ANGLE Last Admin: 04/07/17 10:18 Dose: 80 mg - Labs Labs: 04/08/17 07:30 04/07/17 07:25 PT 12.3 SECONDS (9.4-12.5) 04/06/17 22:49 INR 1.13 (0.93-1.08) H 04/06/17 22:49 APTT 28.1 Seconds (25.1-36.5) 04/06/17 22:49 - Constitutional Appears: No Acute Distress - Head Exam Head Exam: ATRAUMATIC, NORMOCEPHALIC - Respiratory Exam Respiratory Exam: Wheezes, NORMAL BREATHING PATTERN - Cardiovascular Exam Cardiovascular Exam: +S1, +S2 - GI/Abdominal Exam GI & Abdominal Exam: Soft, Normal Bowel Sounds. absent: Tenderness - Extremities Exam Extremities Exam: Normal Inspection - Neurological Exam Neurological Exam: Alert, Awake, CN II-XII Intact, Oriented x3 Assessment and Plan - Assessment and Plan (Free Text) Assessment: Exacerbation of COPD History of breast cancer s/p surgery atrial fibrillation hypertension anxiety Plan: Patient is doing better. continue oxygen, nebulizer treatments, IV Solumedrol and IV rocephin and zithromax. continue Xanax for anxiety she is on nicotine patch as she is a current smoker. She has been strongly advised to stop smoking.
[2017-04-08] MEDS: cefTRIAXone 1 gm 1 GM/100 ML BAG IVPB SCH ×2 (11:08→16:35)
--- NOTE | 2017-04-08 12:42 | PN ---
DATE: LOCATION: She is in room 374, bed 2. SUBJECTIVE: This patient is a 61-year-old white female. She was admitted with exacerbation of chronic obstructive lung disease. Patient also has respiratory infection. Patient is seen this morning. She is much improved compared to yesterday. PHYSICAL EXAMINATION: VITAL SIGNS: Pulse is 77, blood pressure 124/83, respirations are 20, O2 saturation 92% on 2 L of oxygen nasal canula. Patient is on nebulizer treatment. HEENT: Head is normocephalic. LUNGS: Clear, with rhonchi and crepitations are heard. No localizing signs. Diffuse crepitations and rhonchi consistent with wheezing. HEART: Normal sinus rhythm. ABDOMEN: Soft. Liver and spleen are not palpable. CENTRAL NERVOUS SYSTEM: No focal deficits. The patient's O2 saturation as mentioned is 92% on 2 L of nasal oxygen. MEDICATIONS: The patient is on sotalol 80 mg daily. Patient is on albuterol nebulizer treatment, prophylactic heparin q. 8 hours 5000 units. Patient is on nicotine patch for nicotine withdrawal, patient is a smoker, and has been smoking prior to the admission. Patient is on Phenergan With Codeine for cough. Patient gets Rocephin 1 g q. 24 hours for respiratory infection, Solu-Medrol 40 mg IV q. 8 hours. Patient is also on Xanax 0.25 mg q. 6 hours. IMPRESSION: Patient is improving. We will continue current management. Patient has a history of coronary artery disease, hypertension, and chronic lung disease. The overall prognosis is guarded. Condition is improving. Zenon Mon MD
[2017-04-08] MEDS: Azithromycin 500MG/NS 250ml 500 MG/250 ML BAG IVPB SCH ×2 (13:58→16:34)
[2017-04-08] MEDS: Promethazine/Cod 6.25mg-10mg/5ml Syr UD PO PRN ×2 (16:27→22:20)
[2017-04-08] MEDS: Pantoprazole 40 mg EC Tab PO SCH (18:56)
--- NOTE | 2017-04-08 19:02 | CT ---
EXAM: CT Chest Without Intravenous Contrast EXAM DATE/TIME: 04/08/2017 5:17 PM CLINICAL HISTORY: The patient age is 61 years old and is female; Signs and symptoms; Shortness of breath; Additional info: [facility]/? ? ? Pneumonia Facility exam id and description: Ct chests chest w/o contrast TECHNIQUE: Axial computed tomography images of the chest without intravenous contrast. All CT scans at this facility use one or more dose reduction techniques, viz.: automated exposure control; ma/kV adjustment per patient size (including targeted exams where dose is matched to indication; i.e. head); or iterative reconstruction technique. MIP reconstructed images were created and reviewed. Coronal and sagittal reformatted images were created and reviewed. COMPARISON: No relevant prior studies available. FINDINGS: Lungs: Atelectatic change/parenchymal scarring is identified within the anterior aspects of the right middle lobe, both upper lobes, with additional atelectasis within the lingula and left lung base. Otherwise, there is no confluent infiltrate. Mild centrilobular emphysematous changes are identified bilaterally. There is a 3 mm nodule right upper lobe on series 2 image 32. There is a subpleural nodule in the right lower lobe measuring 5 mm on series 2 image 87. Within the left lower lobe on series 2 image 99, there is a 3 mm nodule. Pleural space: No pneumothorax. No significant effusion. Heart: There is coronary artery calcification. No cardiomegaly. Bones/joints: There is an old fracture of the left clavicle, which is unfused. Hypertrophic degenerative changes are noted within the spine. Soft tissues: A left breast prosthesis is identified. Multiple left axillary kirk are visualized. Vasculature: Atherosclerotic changes are identified. Lymph nodes: No significant mediastinal lymphadenopathy is visualized. Evaluation of hilar lymph nodes is limited by the absence of intravenous contrast. There is no axillary lymphadenopathy. Kidneys and ureters: There is mild nonspecific left perinephric stranding. IMPRESSION: 1. There is an old fracture of the left clavicle, which is unfused. 2. Atelectatic change/parenchymal scarring is identified within the anterior aspects of the right middle lobe, both upper lobes, with additional atelectasis within the lingula and left lung base. Otherwise, there is no confluent infiltrate. 3. Mild centrilobular emphysematous changes are identified bilaterally. 4. Scattered small lung nodules are identified. If this patient is at low risk for a primary malignancy, then a follow-up noncontrast chest CT is recommend at 12 months. If unchanged at that time, then no follow-up is required. If this patient is at high risk for a primary malignancy, then a follow-up noncontrast chest CT is recommended at 6-12 months, then at 18-24 months if unchanged. Fleischner Society Recommendations. Incidental Pulmonary Nodule Follow-up. Radiology, 2005 Nov;237(2):395-400. 5. Incidental/non-acute findings are described above.
[2017-04-08] MEDS: Enoxaparin 40 mg Syringe SC SCH (20:10)
[2017-04-09] MEDS: Albuterol-Ipratrop 3 mg / 0.5 (3 ml) UD IH SCH ×6 (01:00→19:04)
[2017-04-09] MEDS: MethylPREDNISolone 40 mg Vial IVP SCH ×4 (03:56→18:28)
[2017-04-09] MEDS: Promethazine/Cod 6.25mg-10mg/5ml Syr UD PO PRN ×3 (04:55→17:33)
[2017-04-09] MEDS: Pantoprazole 40 mg EC Tab PO SCH ×2 (05:00→17:32)
[2017-04-09 06:59] LABS: GRAN # 9.33 (1.4-6.5); GRAN % 92.8 % (50.0-68.0); HEMATOCRIT 43.4 % (36.0-48.0); LYMPH # 0.4 (1.2-3.4); LYMPH % 4.1 % (22.0-35.0); MEAN CELL VOLUME 99.1 fl (80.0-105.0); MEAN CORPUSCULAR HEMOGLOBIN 32.4 pg (25.0-35.0); MEAN CORPUSCULAR HGB CONC 32.7 g/dl (31.0-37.0); MEAN PLATELET VOLUME 10.6 fl (7.0-11.0); MONO # 0.3 (0.1-0.6); MONO % 3.1 % (1.0-6.0); RED CELL DISTRIBUTION WIDTH 12.2 % (11.5-14.5); WHITE BLOOD COUNT 10.1 10^3/ul (4.5-11.0)
[2017-04-09 07:53] LABS: ALB/GLOB RATIO 1.4 (1.1-1.8); ALKALINE PHOSPHATASE 59 U/L (38-126); ALT/SGPT 24 U/L (7-56); AST/SGOT 25 U/L (14-36); BILIRUBIN,TOTAL 0.6 mg/dL (0.2-1.3); BLOOD UREA NITROGEN 18 mg/dL (7-21); CALCIUM 9.3 mg/dL (8.4-10.5); CARBON DIOXIDE 26 mmol/L (21-33); CHLORIDE 101 mmol/L (98-107); GFR AFRICAN-AMERICAN > 60; GLUCOSE,RANDOM 197 mg/dL (70-110); POTASSIUM 3.9 mmol/L (3.6-5.0); SODIUM 138 mmol/L (132-148); TOTAL PROTEIN 6.5 g/dL (5.8-8.3)
[2017-04-09] MEDS: cefTRIAXone 1 gm 1 GM/100 ML BAG IVPB SCH (09:24)
[2017-04-09] MEDS: Enoxaparin 40 mg Syringe SC SCH (10:51)
[2017-04-09] MEDS: Acetylcysteine 20% Inhal Soln (4ml) IH SCH ×3 (11:14→19:05)
[2017-04-09] MEDS: Azithromycin 500MG/NS 250ml 500 MG/250 ML BAG IVPB SCH (13:22)
[2017-04-09 17:41] VITALS: RESP 22
[2017-04-09] MEDS: Albuterol-Ipratrop 3 mg / 0.5 (3 ml) UD IH PRN (22:51)
[2017-04-10] MEDS: Albuterol-Ipratrop 3 mg / 0.5 (3 ml) UD IH PRN ×2 (00:10→08:55)
[2017-04-10] MEDS: Acetylcysteine 20% Inhal Soln (4ml) IH SCH ×4 (03:10→14:40)
[2017-04-10] MEDS: Albuterol-Ipratrop 3 mg / 0.5 (3 ml) UD IH SCH ×3 (03:10→14:40)
[2017-04-10] MEDS: Promethazine/Cod 6.25mg-10mg/5ml Syr UD PO PRN ×2 (03:58→09:47)
[2017-04-10] MEDS: MethylPREDNISolone 40 mg Vial IVP SCH ×2 (05:17→13:50)
[2017-04-10] MEDS: Pantoprazole 40 mg EC Tab PO SCH ×2 (05:54→16:52)
[2017-04-10] MEDS ORDERED: Ergocalciferol 50,000 Intl Units Cap PO SCH (07:15)
--- NOTE | 2017-04-10 07:27 | PN ---
DATE: 04/09/2017 SUBJECTIVE: The patient is seen in room 374, bed 2. The patient is sitting up in the bed comfortable. The patient does not appear to be in any distress at this time. Overnight nurse's notes were reviewed. The patient underwent the CAT scan of the chest. The patient was seen on 04/07/2017 and 04/08/[address] Yaa segal for n[place]. The patient slept well with BiPAP. OBJECTIVE: VITAL SIGNS: T-max 97.6. Telemetry shows heart rate 72, 82, and 90. Telemetry shows sinus rhythm. Blood pressure 129/87, 122/77, 124/80, 124/83, respirations 20, and O2 sat is 92% to 90%. GENERAL: The patient is sitting up in the bed. HEENT: Head; normocephalic and atraumatic. HEENT examination shows pink conjunctivae. Anicteric sclerae. No oropharyngeal lesion. NECK: No neck rigidity. CHEST: Kyphosis. LUNGS: Shows significantly decreased wheezing. Decreased rhonchi. No crackles or rales. VASCULAR: Palpable pulses. ABDOMEN: Soft. Positive bowel sounds. GENITALIA: Female. RECTAL: Deferred. EXTREMITIES: Shows no pitting edema. No calf tenderness. No Homans sign. MUSCULOSKELETAL: Shows a body mass index of 28. NEUROLOGIC: The patient is alert, awake, and oriented x3. Cranial nerves II-XII grossly intact. PSYCHIATRIC: Positive for anxiety. DIAGNOSTIC DATA: On 04/09/2017; WBC 10.1, hemoglobin/hematocrit 14.2 and 43.4, and platelet 247. Granulocytes 93% segs.. Sodium 138, potassium 3.9, chloride 101, CO2 of 26, anion gap 15, BUN 18, creatinine 0.7, GFR greater than 60, glucose 197, calcium 9.3, and hemoglobin A1c 5.9. LFTs are normal. BNP was negative. Cholesterol 370, LDL 294, and HDL 74. Blood cultures, no growth. CT of the chest was noted and explained to the patient in layman's language. EKG was reviewed. IMPRESSION: 1. Acute exacerbation of chronic obstructive pulmonary disease with hypoxemia. 2. 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 3. Hypoxic respiratory failure, bilevel positive airway pressure requiring. 4. Acute exacerbation of chronic obstructive pulmonary disease with bronchospasm and wheezing. 5. Leukocytosis with granulocytosis. 6. Hypoxemia. 7. Prediabetes with hemoglobin A1c of 5.9. 8. Hypercholesterolemia with elevated LDL of almost 300. 9. History of paroxysmal atrial fibrillation. 10. Anxiety disorder. 11. Nicotine dependence. 12. Bilateral atelectasis of the right middle lobe, left lower lobe, and left lingula. 13. Sentry lobar emphysema bilaterally. 14. Right upper lobe 3-mm nodule and right lower lobe 5-mm subpleural nodule and 3-mm left lower lobe nodule. 15. Coronary artery calcification. 16. Left clavicle old fracture, unfused. 17. 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 18. Left breast carcinoma, status post left mastectomy and left breast prosthesis. 19. Nonspecific left perinephric stranding. 20. Resolving bronchospasm. 21. History of poor compliance and noncompliance with failure to take medications and medical followup. PLAN: At this time, the patient has been ordered . The patient's labs have been stable since admission. The patient's CBC and CMP has been monitored consecutively for 4 days, which are stable. The patient's chemistry is also stable for the last 4 days. The patient will be ordered case management referral for home oxygen as the patient is requesting home oxygen. The patient is referred to TCU. The patient's telemetry will be discontinued. CURRENT MEDICATIONS: 1. DuoNeb nebulizer every 6 hours and with Mucomyst nebulizer every 6 hours. 2. Sotalol 80 mg daily. 3. Vibramycin 100 mg IV q.12 hours. 4. Lipitor 80 mg daily. 5. Lovenox 40 mg subcutaneously daily. 6. Nicotine patch 21 mg daily. 7. Phenergan With Codeine 5 mL q.6 hours p.r.n. 8. Protonix 40 mg twice a day. 9. Rocephin 1 g IV daily. 10. Solu-Medrol decreased to 30 mg IV q.8 hours. 11. Tessalon Perles 200 three times a day. 12. Xanax 0.25 p.o. q.6 hours p.r.n. The patient is on BiPAP at night. The patient is on BiPAP 12/6, 30% FIO2, and titrate to keep O2 sat 95%. The patient is on heart-healthy diet. Chest PT q.6 hours. The patient's telemetry is discontinued. The patient has been ordered out of bed to chair, PEDRO stockings, and SCDs. The patient is on both DVT and GI prophylaxis.. The patient will be ordered an echocardiogram for evaluation of her LV function. The patient has been updated about her condition, diagnosis, treatment plan, management plan at length and all questions concerned answered, which she acknowledged and understand. The patient was updated about her condition. The patient was advised close outpatient followup. The patient was advised compliance with medications, diet, and cessation of smoking. The patient was explained all the test results. The patient was told about her diagnosis and test results in layman's language. Dictated and electronically signed, not read. Fernando Lyons MD
[2017-04-10 08:14] VITALS: BP 128/75; PULSE 68; TEMP 97.8; O2SAT 91
[2017-04-10] MEDS: Enoxaparin 40 mg Syringe SC SCH (09:46)
[2017-04-10] MEDS: cefTRIAXone 1 gm 1 GM/100 ML BAG IVPB SCH (09:47)
--- NOTE | 2017-04-10 10:05 | PQF RESP ---
This form is a permanent part of the medical record Clarification of your documentation is requested to better reflect the severity of illness and intensity of treatment of your patient. Indicators present 04/09 Hypoxic resp failure, requiring BiPAP, please document acuity POA [x] Use of Home Oxygen [] Respiratory rate > 28 or <8/min (Labored respirations) [] PCO2 > 50 mm Hg or (Hypercapnia) (somnolence) [x] PaO2 < 60 mm Hg or Hypoxemia (confusion) [] ABG blood gas pH < 7.35 [] SpO2 < 90% sat on Room Air [] Cyanosis [] Unable to Speak in Full Sentences [] Use of Accessory Muscles / Tripoding [] Wheezing [] Other: [] Location in the medical record that reflects the above clinical findings: []PN 04/09 Treatment Provided: [x] use of BiPAP PHYSICIAN'S RESPONSE Based on your medical judgment of the clinical indicators outlined above, are you treating this patient for a known or suspected: [x] Acute Respiratory Failure (hypoxia or hypercapnia) [] Chronic Respiratory Failure (hypoxia or hypercapnia) [] Acute on Chronic Respiratory Failure (hypoxia or hypercapnia) [] Hypoxemia please specify ACUTE, CHRONIC or ACUTE on CHRONIC [] Other []_ [] If unable to determine, please check the box, sign and date. Present On Admission (POA) Indicator: [x] Present at the time of admission [] Not present at the time of admission [] Clinically Undetermined In responding to this query, please exercise your independent professional judgment. The fact that a question is asked does not imply that any particular answer is desired or expected. Thank you for your clarification on this documentation. If you have any questions please call:[ ][phone] * Thank you, [ ]Liya Abreu RN CDS information technology director Chronic Respiratory Failure Description: Respiratory failure is a syndrome in which the respiratory system fails in one or both of its gas exchange functions: oxygenation and carbon dioxide elimination. In theory, respiratory failure is defined as a Pa02 value of <60 mm/Hg or a PaC02 of >50 mm/Hg. However, these values may be affected by renal compensation. Respiratory failure may be acute or chronic. While acute respiratory failure is characterized by life-threatening derangement in arterial blood gases and acid-base balance, the manifestations of chronic respiratory failure are less dramatic and may not be as readily apparent. Classifications: Respiratory failure may be classified as hypoxemic (usually characterized by Pa02 of <60 mm/Hg) or hypercapnic (usually characterized by PaC02 >50 mm/Hg) and either may be acute or chronic. Chronic hypercapnic respiratory failure develops over time and allows for renal compensation and an increase in bicarbonate concentration; therefore the pH is usually only slightly decreased. The distinction between acute and chronic hypoxemic respiratory failure cannot readily be made on the basis of ABGs; the clinical markers of chronic hypoxemia, such as polythycemia or cor pulmonale suggest a long standing disorder (chronic hypoxemic respiratory failure). Clinical Indicators: dyspnea at rest or "chronic" dyspnea, concomitant conditions such as polycythemia or cor pulmonale, requirement for continuous oxygen support, forced expiratory volume in one second (FEV1) of 49 or less, pursed lip breathing, "barrel" chest, hyperinflation by CXR, muscle wasting, malnutrition/obesity, poor exercise capacity, peripheral edema, description as a "blue bloater" (usually associated with chronic, obstructive bronchitis) or "pink puffer" (usually associated with emphysema) Risks: Chronic Hypoxemic Respiratory Failure - COPD, pulmonary fibrosis, asthma , pulmonary arterial hypertension, granulomatous lung diseases, congenital heart disease, bronchiectasis, kyphoscoliosis, obesity; Chronic Hypercapnic Respiratory Failure - COPD, severe asthma, myasthenia gravis, polyneuropathy, polio, head and cervical spine injuries, obesity hypoventilation syndrome. Treatment: supplemental oxygen, bronchodilators, corticosteroids, adequate nutrition, lung transplant References: Am. J. Respir. Crit. Care Med. "Global Strategy for the Diagnosis, Management and Prevention of COPD: GOLD Exectuive Summary," Tiara Bowser Anzueto - 2007; Proceedings of the [employer] "Mechanisms and Measurements of Dyspnea in COPD," Bertha - 2006; WebMD; Respiratory Failure, Puneet Willoughby MD - 10/2005; Bobby's Principles of Internal Medicine, 17th edition. Acute Respiratory Failure Acute Respiratory Failure indicators include: ~Respirations >28 ~Air hunger ~Use of accessory muscles of respiration ~Inability to speak in full sentences Cyanosis ~Pulse ox <90% RA or <95% on O2 pH <7.35 or >7.45 ~pO2 < 60 mm Hg (or 10mm below COPD patient's baseline) ~pCO2 >50mm Hg (or 10mm above COPD patient's baseline) "Respiratory failure may be assigned as a principal diagnosis when it is the condition established after study to be chiefly responsible for occasioning admission to the hospital. The fact that the respiratory failure was managed without intubation and mechanical ventilation does not preclude its use." [facility], 3rd Qtr., 1988, p. 7 MTDD
[2017-04-10] MEDS ORDERED: Budesonide 0.5 mg/2 ml Inhal Susp UD IH SCH (11:00)
--- NOTE | 2017-04-10 14:31 | PN ---
DATE: 04/10/2017 SUBJECTIVE: The patient is seen in room 360 at bed 2. The patient is sitting up in the bed. The patient had episodes of shortness of breath on exertion yesterday with hypoxemia. The patient requiring p.r.n. nebulizer for the shortness of breath, DuoNeb. The patient is right now sitting up in the bed, watching TV. The patient appears to be comfortable at present. Overnight nurse's notes were reviewed. The patient continued on the oxygen, nasal cannula. T-max is 99.2 Fernando Lyons MD
--- NOTE | 2017-04-10 16:00 | PN ---
FINAL PROGRESS NOTE AND DISCHARGE SUMMARY DATE: 04/10/2017 LOCATION: The patient is seen in room 360 at bed 2. SUBJECTIVE: The patient is seen today, sitting up in the bed. Yesterday, the patient had episodes of dyspnea on exertion and shortness of breath on exertion and hypoxemia while exerting, which resolved with p.r.n. nebulizer and DuoNeb nebulizer. Overnight nurse's notes were reviewed. OBJECTIVE: VITAL SIGNS: T-max 98.9; pulse rate 80 to 68 to 72 to 74; blood pressure 128/75, 149/74, 132/80, 129/87. Respirations 22. O2 sat 88 yesterday, up to 91, 92, and 89 on nasal cannula. HEENT: The patient's head examination, normocephalic and atraumatic. Shows pink conjunctivae. Anicteric sclerae. No oropharyngeal lesion. No neck rigidity. CHEST: Positive mastectomy noted. Positive breast prosthesis noted. Positive kyphosis. LUNGS: Shows positive rhonchi in upper lung cruz, anterior and posteriorly, decreasing wheezing. CARDIOVASCULAR: S1 and S2, regular rhythm. ABDOMEN: Soft. Positive bowel sound. GENITALIA: Female. RECTAL EXAMINATION: Deferred. EXTREMITY: Shows no pitting edema, no calf numbness, no Homans' sign. NEUROLOGIC: The patient is alert, awake, and oriented x3. Cranial nerves II through XII are intact. Gait examination is independent. MUSCULOSKELETAL: Shows a body mass index of 28. VASCULAR: Palpable pulses. PSYCHIATRIC: Positive for anxiety. DIAGNOSTICS: None from today. Blood cultures with no growth. FINAL IMPRESSION AND PLAN & DISCHARGE DIAGNOSES: 1. Resolving [id number] hypoxic respiratory failure, bilevel positive airway pressure requiring. 2. Acute exacerbation of chronic obstructive pulmonary disease with hypoxemia. 3. 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 4. History of paroxysmal atrial fibrillation. 5. Acute exacerbation of chronic obstructive pulmonary disease with bronchospasm and wheezing. 6. Hypoxemia with exercise-induced desaturation. 7. Paroxysmal atrial fibrillation. 8. Leukocytosis with granulocytosis. 9. Prediabetes. 10. Hypercholesteremia with elevated LDL of almost 300 and hypercholesteremia with total cholesterol of 370. 11. Nicotine dependence. 12. History of poor compliance and noncompliance. 13. Anxiety disorder. 1. Acute exacerbation of chronic obstructive pulmonary disease with hypoxemia. 2. 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 3. Hypoxic respiratory failure, bilevel positive airway pressure requiring. 4. Acute exacerbation of chronic obstructive pulmonary disease with bronchospasm and wheezing. 5. Leukocytosis with granulocytosis. 6. Hypoxemia. 7. Prediabetes with hemoglobin A1c of 5.9. 8. Hypercholesterolemia with elevated LDL of almost 300. 9. History of paroxysmal atrial fibrillation. 10. Anxiety disorder. 11. Nicotine dependence. 12. Bilateral atelectasis of the right middle lobe, left lower lobe, and left lingula. 13. Sentry lobar emphysema bilaterally. 14. Right upper lobe 3-mm nodule and right lower lobe 5-mm subpleural nodule and 3-mm left lower lobe nodule. 15. Coronary artery calcification. 16. Left clavicle old fracture, unfused. 17. 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 18. Left breast carcinoma, status post left mastectomy and left breast prosthesis. 19. Nonspecific left perinephric stranding. 20. Resolving bronchospasm. 21. History of poor compliance and noncompliance with failure to take medications and medical followup. PLAN: At this time, the patient has been referred to case management for home oxygen. The patient is referred to TCU and will be discharged to TCU. CURRENT MEDICATIONS: 1. Mucomyst nebulizer 20% 4 mL q.6 hours. to be given with DuoNeb nebulizer every 6 hours and DuoNeb nebulizer every 2 hours p.r.n. 2. Sotalol 80 mg daily. 3. Brovana 15 mcg q.12. 4. Vibramycin 100 mg IV q.12. 5. Drisdol 50,000 units weekly. 6. Lipitor 80 mg daily. 7. Lovenox 40 mg subcu daily. 8. Nicotine patch 21 mg daily. 9. Phenergan with Codeine 5 mL q.6h. p.r.n. 10. Protonix 40 mg twice a day. 11. Pulmicort nebulizer started at 0.5 mg q.12 hours. 12. Rocephin 1 g IV daily. 13. Solu-Medrol, to be kept at 30 mg IV q.8h. 14. Tessalon Perles 200 three times a day. 15. Xanax 0.25 mg q.6 hours. p.r.n. 16. Zetia 10 mg daily. The patient is on BiPAP at night at 12/6, 30%. The patient's echo with Doppler is pending. The patient is on heart healthy diet. The patient has been advised out of bed, ambulation, PEDRO stockings. The patient has been ordered repeat CBC, CMP, liver, magnesium, and vitamin D level for the morning. The patient has been counseled about cessation of smoking. The patient has been advised to speak to the manager social media and disease case manager for home oxygen and other requirements for home, which she acknowledged and understood. The patient has been requesting Pulmonary evaluation which has been requested. The patient's further management will be dependent upon the patient's clinical condition, hemodynamic status, and as per the patient's response to therapeutic intervention, as per the patient's diagnostic test results, and as per further recommendation by all the physicians involved in the care of the patient. PATIENT ACCEPTED TO TCU AND WILL BE DISCHARGED TO TCU. Dictated and electronically signed, not read. Fernando Lyons MD MTDD
--- NOTE | 2017-04-10 16:58 | CARD ---
APPROVED REPORT EXAM: Two-dimensional and M-mode echocardiogram with Doppler and color Doppler. INDICATION COPD 2D DIMENSIONS Left Atrium (2D)3.7 (1.6-4.0cm)IVSd0.7 (0.7-1.1cm) LVDd4.2 (3.9-5.9cm)PWd1.0 (0.7-1.1cm) LVDs2.7 (2.5-4.0cm)FS (%) 35.8 % LVEF (%)65.7 (>50%) M-Mode DIMENSIONS Aortic Root3.30 (2.2-3.7cm)Aortic Cusp Exc.1.80 (1.5-2.0cm) Aortic Valve AoV Peak Lewevidf036.0cm/Dorothy Peak GR.7mmHg Mitral Valve MV E Lqffayke28.3cm/sMV A Hdjctrcz41.9cm/sE/A ratio1.1 TDI Lateral E' Peak V7.21cm/sMedial E' Peak V8.97cm/sE/Lateral E'12.5 E/Medial E'10.1 Pulmonary Valve PV Peak Slzokcnc71.9cm/sPV Peak Grad.3mmHg Tricuspid Valve TR Peak Kktyggqh382nt/sRAP [id number] Peak Gr.24mmHg [id number] LEFT VENTRICLE The left ventricle is normal size. There is normal left ventricular wall thickness. The left ventricular function is normal. The left ventricular ejection fraction is within the normal range. There is normal LV segmental wall motion. Transmitral Doppler flow pattern is Grade I-abnormal relaxation pattern. RIGHT VENTRICLE The right ventricle is normal size. There is normal right ventricular wall thickness. The right ventricular systolic function is normal. ATRIA The left atrium size is normal. The right atrium size is normal. AORTIC VALVE The aortic valve is not well visualized. No aortic regurgitation is present. There is no aortic valvular stenosis. MITRAL VALVE The mitral valve is mildly thickened. There is no mitral valve regurgitation noted. TRICUSPID VALVE There is mild pulmonary hypertension. GREAT VESSELS The aortic root is normal in size. The IVC is normal in size and collapses >50% with inspiration. PERICARDIAL EFFUSION There is no pericardial effusion. <Conclusion> The left ventricle is normal size. There is normal left ventricular wall thickness. The left ventricular function is normal. The left ventricular ejection fraction is within the normal range. There is normal LV segmental wall motion. Transmitral Doppler flow pattern is Grade I-abnormal relaxation pattern. There is mild pulmonary hypertension.
[2017-04-10] MEDS ORDERED: Arformoterol 15 mcg/2 ml Inh Sol IH SCH (20:00)
--- NOTE | 2017-04-11 08:34 | DS ---
DATE: 04/10/2017 LOCATION: The patient is seen in room 360 at bed 2. SUBJECTIVE: The patient is seen today, sitting up in the bed. Yesterday, the patient had episodes of dyspnea on exertion and shortness of breath on exertion and hypoxemia while exerting, which resolved with p.r.n. nebulizer and DuoNeb nebulizer. Overnight nurse's notes were reviewed. OBJECTIVE: VITAL SIGNS: T-max 98.9; pulse rate 80 to 68 to 72 to 74; blood pressure 128/75, 149/74, 132/80, 129/87. Respirations 22. O2 sat 88 yesterday, up to 91, 92, and 89 on nasal cannula. HEENT: The patient's head examination, normocephalic and atraumatic. Shows pink conjunctivae. Anicteric sclerae. No oropharyngeal lesion. No neck rigidity. CHEST: Positive mastectomy noted. Positive breast prosthesis noted. Positive kyphosis. LUNGS: Shows positive rhonchi in upper lung cruz, anterior and posteriorly, decreasing wheezing. CARDIOVASCULAR: S1 and S2, regular rhythm. ABDOMEN: Soft. Positive bowel sound. GENITALIA: Female. RECTAL EXAMINATION: Deferred. EXTREMITY: Shows no pitting edema, no calf numbness, no Homans' sign. NEUROLOGIC: The patient is alert, awake, and oriented x3. Cranial nerves II through XII are intact. Gait examination is independent. MUSCULOSKELETAL: Shows a body mass index of 28. VASCULAR: Palpable pulses. PSYCHIATRIC: Positive for anxiety. DIAGNOSTICS: None from today. Blood cultures with no growth. IMPRESSION: 1. Resolving [id number] hypoxic respiratory failure, bilevel positive airway pressure requiring. 2. Acute exacerbation of chronic obstructive pulmonary disease with hypoxemia. 3. 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 4. History of paroxysmal atrial fibrillation. 5. Acute exacerbation of chronic obstructive pulmonary disease with bronchospasm and wheezing. 6. Hypoxemia with exercise-induced desaturation. 7. Paroxysmal atrial fibrillation. 8. Leukocytosis with granulocytosis. 9. Prediabetes. 10. Hypercholesteremia with elevated LDL of almost 300 and hypercholesteremia with total cholesterol of 370. 11. Nicotine dependence. 12. History of poor compliance and noncompliance. 13. Anxiety disorder. PLAN: At this time, the patient has been referred to case management for home oxygen. The patient is referred to TCU. CURRENT MEDICATIONS: 1. Mucomyst nebulizer 20% 4 mL q.6 hours. to be given with DuoNeb nebulizer every 6 hours and DuoNeb nebulizer every 2 hours p.r.n. 2. Sotalol 80 mg daily. 3. Brovana 15 mcg q.12. 4. Vibramycin 100 mg IV q.12. 5. Drisdol 50,000 units weekly. 6. Lipitor 80 mg daily. 7. Lovenox 40 mg subcu daily. 8. Nicotine patch 21 mg daily. 9. Phenergan with Codeine 5 mL q.6h. p.r.n. 10. Protonix 40 mg twice a day. 11. Pulmicort nebulizer started at 0.5 mg q.12 hours. 12. Rocephin 1 g IV daily. 13. Solu-Medrol, to be kept at 30 mg IV q.8h. 14. Tessalon Perles 200 three times a day. 15. Xanax 0.25 mg q.6 hours. p.r.n. 16. Zetia 10 mg daily. The patient is on BiPAP at night at 12/6, 30%. The patient's echo with Doppler is pending. The patient is on heart healthy diet. The patient has been advised out of bed, ambulation, PEDRO stockings. The patient has been ordered repeat CBC, CMP, liver, magnesium, and vitamin D level for the morning. The patient has been counseled about cessation of smoking. The patient has been advised to speak to the family welfare social work professor and watch caser for home oxygen and other requirements for home, which she acknowledged and understood. The patient has been requesting Pulmonary evaluation which has been requested. The patient's further management will be dependent upon the patient's clinical condition, hemodynamic status, and as per the patient's response to therapeutic intervention, as per the patient's diagnostic test results, and as per further recommendation by all the physicians involved in the care of the patient. Dictated and electronically signed, not read. Fenrando Lyons MD
== END 2017-04-10 17:37 | DRG 190 ==
LOC: ED 22:19 → ERH 04-07 01:41 → 3RSO 04-07 03:49 → 3RNO 04-09 16:14
PROVIDERS: ADMIT Internal Medicine; ATTEND Internal Medicine
DX: J44.1 Chronic obstructive pulmonary disease with (acute) exacerbation (principal); J96.21 Acute and chronic respiratory failure with hypoxia; J98.11 Atelectasis; I48.0 Paroxysmal atrial fibrillation; I25.10 Atherosclerotic heart disease of native coronary artery without angina pectoris; J44.0 Chronic obstructive pulmonary disease with (acute) lower respiratory infection; J20.9 Acute bronchitis, unspecified; K58.9 Irritable bowel syndrome, unspecified; Z85.3 Personal history of malignant neoplasm of breast; Z90.12 Acquired absence of left breast and nipple; R73.03 Prediabetes; M47.9 Spondylosis, unspecified; I10 Essential (primary) hypertension; Z87.01 Personal history of pneumonia (recurrent); F41.9 Anxiety disorder, unspecified; E78.00 Pure hypercholesterolemia, unspecified; F17.210 Nicotine dependence, cigarettes, uncomplicated; Z91.19 Patient's noncompliance with other medical treatment and regimen; Z98.82 Breast implant status; R40.2412 Glasgow coma scale score 13-15, at arrival to emergency department; R91.8 Other nonspecific abnormal finding of lung field; Z68.28 Body mass index [BMI] 28.0-28.9, adult; Z87.81 Personal history of (healed) traumatic fracture

== ENCOUNTER 2017-04-10 17:37 | Inpatient (IN) | payer OTHER ==
[2017-04-10] MEDS ORDERED: Albuterol-Ipratrop 3 mg / 0.5 (3 ml) UD IH PRN (18:57)
[2017-04-10] MEDS: Acetylcysteine 20% Inhal Soln (4ml) IH SCH (19:10)
[2017-04-10] MEDS: Albuterol-Ipratrop 3 mg / 0.5 (3 ml) UD IH SCH (19:10)
[2017-04-10] MEDS: Arformoterol 15 mcg/2 ml Inh Sol IH SCH ×2 (20:19)
[2017-04-10] MEDS: Budesonide 0.5 mg/2 ml Inhal Susp UD IH SCH (20:20)
[2017-04-10 21:34] VITALS: BMI 26.3
[2017-04-10] MEDS: MethylPREDNISolone 40 mg Vial IVP SCH (22:06)
[2017-04-10] MEDS: Promethazine/Cod 6.25mg-10mg/5ml Syr UD PO PRN (22:37)
[2017-04-11] MEDS: Albuterol-Ipratrop 3 mg / 0.5 (3 ml) UD IH SCH ×4 (01:02→19:53)
[2017-04-11] MEDS: Acetylcysteine 20% Inhal Soln (4ml) IH SCH ×4 (01:03→19:53)
[2017-04-11] MEDS: Enoxaparin 40 mg Syringe SC SCH (05:43)
[2017-04-11] MEDS: Pantoprazole 40 mg EC Tab PO SCH ×2 (05:43→17:59)
[2017-04-11] MEDS: cefTRIAXone 1 gm 1 GM/100 ML BAG IVPB SCH (05:43)
[2017-04-11] MEDS: MethylPREDNISolone 40 mg Vial IVP SCH ×3 (05:44→21:24)
[2017-04-11] MEDS: Promethazine/Cod 6.25mg-10mg/5ml Syr UD PO PRN ×3 (05:52→21:25)
[2017-04-11] MEDS: Arformoterol 15 mcg/2 ml Inh Sol IH SCH ×3 (07:45→19:53)
[2017-04-11] MEDS: Budesonide 0.5 mg/2 ml Inhal Susp UD IH SCH ×2 (07:46→19:53)
--- NOTE | 2017-04-11 13:26 | IP.NPCORE ---
COPD Progress Note - COPD Progress Note Plan to assess at outpatient follow up: Yes Symptoms:: Increase in Dyspnea, Cough Initial CXR:: chest CT: mild emphysematous changes Date:: 04/07/17 Oxygen Saturation/Pulse Oximetry:: 97 ABG Not Indicated (Symptoms Improved): Yes Nebulizers Q2-4 hrs:: Duonebs/Albuterol Therapy Antibiotics (Name/Dose/Frequency):: Doxycycline 100 mg iv q12, Rocephimn 1gm IV daily Systemic Steroids w/ methylprednisolone Name/Dose/Frequency:: solumedrol 30 mg iv tid Oxygen Delivery Method: Nasal Cannula Oxygen Flow Rate: 4 Smoking cessation counseling all stages copd exacerbation: Yes
--- NOTE | 2017-04-11 18:10 | CON ---
DATE: 04/11/2017 PULMONARY CONSULTATION REASON FOR CONSULTATION: Chronic obstructive pulmonary disease. REFERRING PHYSICIAN: Dr. Lyons HISTORY OF PRESENT ILLNESS: The patient is a 61-year-old female, with past medical history significant for chronic obstructive pulmonary disease, positive extensive smoking history - still smokes, breast cancer, paroxysmal atrial fibrillation, hypertension, who presented to [facility] - originally on 04/06/2017 - with a 3-day history of worsening shortness of breath at rest, dyspnea on exertion, cough, and sputum production. There is no history of chest pain, coughing up of blood, or chest pain - made worse with deep respirations. There is no history of temperatures, chills, or infectious exposure. There is no history of night sweats, weight loss, or appetite change prior to the above events. No history of leg or calf pains. No history of syncope or diaphoresis. No history of recent travel or trauma. REVIEW OF SYSTEMS: No history of nausea, vomiting, or diarrhea. No acute urinary symptoms. No new neurologic or musculoskeletal complaints. Rest of the review of systems is negative. ALLERGIES: NO KNOWN ALLERGIES. SOCIAL HISTORY: Positive for extensive tobacco usage - still smokes, no alcohol. FAMILY HISTORY: No inheritable diseases. HOME MEDICATIONS: Include Betapace, sotalol, promethazine, Xanax, and DuoNebs. PHYSICAL EXAMINATION: SUBJECTIVE: The patient appears comfortable at rest. She is not short of breath. VITALS: (Last noted in the computer): Temperature is 97.7, pulse 67, respirations 18, blood pressure 153/82. Oxygen saturation - last noted on nasal cannula - 91%. HEENT: Normocephalic, atraumatic. No JVD. CARDIOVASCULAR: Positive S1 and S2. No S3 gallop. LUNGS: Decreased breath sounds at the bases. Mild rhonchi and wheezing bilaterally. EXTREMITIES: No clubbing, cyanosis, or edema. Calves are nontender to palpation. GASTROINTESTINAL: Abdomen is soft, nontender, and nondistended. Bowel sounds are positive. SKIN: No acute rash. NEUROLOGIC: Limited at the present time. PERTINENT LABORATORY DATA: CAT scan of the chest was done on 04/08/2017 and reviewed. There are scattered linear scar-like changes noted within the anterior right middle lobe, both upper lobes, and at the bases. There is no consolidation noted. There are also a few tiny bilateral pulmonary nodules - the largest of which is 5 mm. There is no significant lymphadenopathy. Arterial blood gas was last done on 04/07/2017. The arterial blood gas was done on nasal cannula. Results are: A pH of 7.36, pCO2 45, pO2 of 49. CBC: White count 10.1, hemoglobin 14.2, hematocrit 43.4, and platelets of 247,000. IMPRESSION: 1. Acute bronchitis. 2. Advanced chronic obstructive pulmonary disease. 3. Hypoxemia. 4. Tiny pulmonary nodules. 5. Hypertension. PLAN: The patient presented to [facility] - originally on 04/06/2017 - with a 3-day history of worsening pulmonary symptoms. She was thus admitted for additional evaluation and treatment. While on the acute care side, the patient had a significant decrease in her pulmonary symptoms. She is now feeling significantly better. She was thus transferred to the transitional unit for physical therapy. I did review the CAT scan of the chest - noted above. There are scattered, linear, scar-like changes noted bilaterally. There are also some very tiny pulmonary nodules - the largest of which is 5 mm - bilaterally. I did discuss the case and CAT scan with the patient at length this morning. She is well aware that she will need another CAT scan in the future - for comparison. I did give her my card/information for a followup appointment. She fully plans to see me in the office. On physical exam, there is mild bronchospasm noted. The patient is currently on nebulizer treatments, inhaled Pulmicort, and low-dose intravenous steroids. I will continue with the current regimen for now. The patient is also on antibiotic therapy. There are no temperatures noted. The leukocytosis has resolved. Clinical status of the patient is significantly improved - compared to her initial presentation. Again, she is now on the transitional unit - where she will participate with physical therapy. Additional pulmonary intervention will be based on the clinical status of the patient. I will discuss the above with Dr. Lyons later this morning. Thank you very much for this pulmonary consultation. Matty Gimenez MD MTDRoma
--- NOTE | 2017-04-11 19:16 | HP ---
The patient is now admitted to Transitional Care Unit after completion of acute care hospitalization from April 07 to April 10. The patient is now admitted to Transitional Care Unit. The patient is seen in room 322, bed 2. The patient was admitted overnight in TCU in room 322, bed 2. The patient's overnight nurse's notes were reviewed. No adverse events documented except that the patient refused BiPAP and refused SCDs and PEDRO stockings. CODE STATUS: The patient's code status full code. LIVING WILL/ADVANCE DIRECTIVE: None. ALLERGIES: NONE. HEIGHT: 5 feet 6 inches. WEIGHT: 163 pounds. BMI: 26.4. VITAL SIGNS: T-max 97.7, pulse 62 to 67, blood pressure 153/82, respiration 18, O2 saturation not documented. HOME MEDICATIONS: Sotalol 80 mg; Phenergan; codeine; Xanax; and DuoNeb. SOCIAL HISTORY: The patient's social history positive for smoking. Positive for alcohol use. Denies substance use. Denies communicable transmissible disease. OCCUPATIONAL HISTORY: The patient is a disabled operating room nurse. FAMILY HISTORY: Not available at present. MENSTRUAL HISTORY: Postmenopausal. PAST MEDICAL AND SURGICAL HISTORY: History of paroxysmal atrial fibrillation, history of hypertension, history of dyslipidemia, history of prediabetes, history of irritable bowel syndrome, history of tonsillectomy, history of anxiety, depression, history of nicotine dependence, history of alcohol use, history of chronic obstructive pulmonary disease with multiple exacerbation, history of left breast carcinoma, status post left mastectomy. The patient's past medical history is significant for right middle lobe, bilateral upper lobe, left lingular lobe, left lower lobe atelectasis, history of centrilobular emphysema, history of right upper lobe 3 mm nodule, history of right lower lobe 5 mm subpleural nodule, history of left lower lobe 3 mm nodule, history of coronary artery calcification, history of left clavicle unfused old fracture, history of hypertrophic degenerative joint disease of the spine, history of left breast carcinoma, status post left mastectomy and left breast prosthesis, history of nonspecific left perinephric stranding, history of poor compliance, history of noncompliance, history of lost to follow up, history of anxiety disorder, history of hypertension, history of paroxysmal atrial fibrillation, history of left adrenal adenoma, history of nonobstructive left nephrolithiasis. The patient's past medical history is significant for exacerbation of COPD, bronchospasm, history of hypoxemia, history of left lower lobe pneumonia, history of hypercarbia, history of hepatic steatosis, history of stable left adrenal adenoma, history of left mastectomy and axillary dissection, history of hypoxemia, hyperglycemia, history of microscopic hematuria, history of hepatic steatosis, history of hypovitaminosis D, history of poor compliance, history of active nicotine dependence, history of multilobar atelectasis, history of bronchiectasis, history of nonobstructing left nephrolithiasis, history of degenerative joint disease of the spine, history of bronchospasm, history of hypoxemia, history of anxiety disorder, history of paroxysmal atrial fibrillation, history of asthmatic bronchitis, history of hypertriglyceridemia, history of acute exacerbation of chronic obstructive pulmonary disease, history of multilobar pneumonia, bronchiectasis, history of aortic ectasia, history of degenerative joint disease, history of nicotine addiction and dependence. OCCUPATION HISTORY: Unemployed, the patient is disabled operation room nurse. FAMILY HISTORY: History of cerebral infarct in grandmother, history of heart problems in the father, and mother has history of hypertension. PSYCHIATRIC HISTORY: Positive for anxiety and insomnia. PHYSICAL EXAMINATION: HEENT: The patient's head examination normocephalic, atraumatic. HEENT examination shows pink conjunctivae. Anicteric sclerae. No oropharyngeal lesion. No neck rigidity. CHEST: Examination kyphosis. Positive left mastectomy and prosthesis noted. LUNGS: Examination shows rhonchi upper lung cruz. No audible wheeze at present. CARDIOVASCULAR: Examination shows S1, S2, regular rhythm. ABDOMEN: Soft. Positive bowel sounds. GENITALIA: Female. RECTAL: Examination is deferred. EXTREMITIES: Extremity shows no pitting, no calf numbness, no Homans' sign. NEUROLOGIC: The patient is alert, awake, oriented x3. Cranial nerves II through XII grossly intact. GAIT: Independent. The patient has oxygen 2 liters nasal cannula on. VASCULAR: Examination palpable pulses. PSYCHIATRIC: Examination positive for anxiety. The patient's body mass index is 26.4. DIAGNOSTICS: None from today. IMPRESSION AND PLAN: 1. Deconditioning. 2. Gait dysfunction. 3. Resolving awhjo-hj-sarogdv hypoxic respiratory failure, BiPAP requiring. 4. Acute exacerbation of chronic obstructive pulmonary disease with bronchospasm, wheezing and hypoxemia. 5. 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 6. Resolving bronchospasm and wheezing. 7. Exercise-induced desaturation and hypoxemia. 8. Prediabetes. PLAN: At present, 1. The patient will be admitted to [facility] Transitional Care Unit. 2. Pulmonary consultation requested. CURRENT MEDICATIONS: 1. Mucomyst nebulizer 4 mL 20% every 6 hours to be mixed with DuoNeb nebulizer every 6 hours round the clock. 2. Sotalol 80 mg daily. 3. Brovana 15 mcg q. 12. 4. Doxycycline 100 mg p.o. q. 12. 5. Drisdol 50,000 units weekly. 6. DuoNeb nebulizer every 2 hours p.r.n. also. 7. Lipitor 80 mg daily. 8. Lovenox 40 mg subcu daily for DVT prophylaxis. 9. Nicotine patch 21 mg daily. 10. Phenergan with Codeine 5 mL q.6 hours p.r.n. 11. Protonix 40 mg twice a day. 12. Pulmicort nebulizer 0.5 mg q.12 hours. 13. Protonix 40 mg daily. 14. Rocephin 1 g IV q. 12. 15. Solu-Medrol 30 mg IV q. 8. 16. Tessalon Perles 200 three times a day round the clock. 17. Xanax 0.25 mg q.6 hours p.r.n. 18. Zetia 10 mg daily. The patient is also ordered chest PT. The patient is ordered BiPAP 04/04, 30% to keep the O2 saturation up to 95%. The patient is on oxygen 3 liters continuous humidified during the day. The patient is on chest PT q.6 hours. The patient has had been ordered PEDRO stockings, SCDs, out of bed, physical therapy, occupational therapy ordered. At present, the patient is to be monitored very closely on TCU. The patient will continue TCU stay. The patient's further management will be dependent upon the patient's clinical condition, hemodynamic status, and as per the patient response to therapeutic intervention. In addition, the patient's IV antibiotics and steroids will be tapered down depending upon the patient's clinical condition and pulmonary status. The patient has been again counseled about strict compliance with medications, diet, activity, physician followup. The patient was also counseled about cessation of smoking and alcohol. All of the above was explained and discussed with the patient in layman's language. All questions and concerns answered to the patient's satisfaction. Dictated and electronically signed, not read. Fernando Lyons MD
[2017-04-12] MEDS: Promethazine/Cod 6.25mg-10mg/5ml Syr UD PO PRN ×3 (04:43→17:34)
[2017-04-12] MEDS: Enoxaparin 40 mg Syringe SC SCH (05:09)
[2017-04-12] MEDS: cefTRIAXone 1 gm 1 GM/100 ML BAG IVPB SCH (05:09)
[2017-04-12] MEDS: MethylPREDNISolone 40 mg Vial IVP SCH ×3 (05:10→21:31)
[2017-04-12] MEDS: Pantoprazole 40 mg EC Tab PO SCH ×2 (05:11→17:36)
[2017-04-12] MEDS: Acetylcysteine 20% Inhal Soln (4ml) IH SCH ×3 (07:40→20:08)
[2017-04-12] MEDS: Arformoterol 15 mcg/2 ml Inh Sol IH SCH ×2 (07:40→20:09)
[2017-04-12] MEDS: Budesonide 0.5 mg/2 ml Inhal Susp UD IH SCH ×2 (07:40→20:09)
[2017-04-12] MEDS: Albuterol-Ipratrop 3 mg / 0.5 (3 ml) UD IH SCH ×3 (07:41→20:09)
[2017-04-12] MEDS ORDERED: MethylPREDNISolone 40 mg Vial IVP SCH ×2 (07:45→10:00)
--- NOTE | 2017-04-12 08:25 | PN ---
DATE: 04/12/2017 PULMONARY NOTE SUBJECTIVE: The patient appears comfortable this morning. She is not short of breath at rest. PHYSICAL EXAMINATION: VITAL SIGNS: (Last noted in the computer): Temperature is 98.4, pulse 69, respirations 18, blood pressure 117/71. Oxygen saturation on nasal cannula is 95%. HEENT: Normocephalic, atraumatic. No JVD. CARDIOVASCULAR: Positive S1, S2. No S3 gallop. LUNGS: Improved breath sounds at the bases. Minimal/less rhonchi. No wheezing. EXTREMITIES: No clubbing, cyanosis or edema. Calves are nontender to palpation. GI: Abdomen is soft, nontender and nondistended. Bowel sounds are positive. SKIN: No acute rash. NEUROLOGIC: Exam limited at the present time. IMPRESSION: 1. Acute bronchitis. 2. Advanced chronic obstructive pulmonary disease. 3. Hypoxemia. 4. Tiny pulmonary nodules. 5. Hypertension. PLAN: The patient appears very comfortable this morning. She is not short of breath at rest. She is much less dyspneic on exertion. She does state to feeling much better overall. On physical exam, her bronchospasm is certainly less. I will continue with the current nebulizer treatments and decrease the intravenous steroids this morning. I also discussed the case with the physical therapy department. The patient does desaturate with ambulation. Home oxygen is being set up for her. Clinical status of the patient is significantly improved - compared to the initial presentation. However, the future status/prognosis for this patient does remain somewhat guarded - as she does have advanced lung disease. I will discuss the above with Dr. Lyons later this morning. Matty Gimenez MD JODI
--- NOTE | 2017-04-12 08:55 | PN ---
DATE: 04/12/2017 SUBJECTIVE: The patient is seen in room number 322, bed two. Overnight nurse's notes were reviewed. The patient was yesterday encouraged to be out of bed and ambulate on the floor, as the patient was found sleeping during the afternoon and late morning hours. The patient was seen by the social media director for discharge planning. Overnight nurse's notes were reviewed. The patient ambulated without any adverse event. No adverse events were documented overnight. PHYSICAL EXAMINATION: VITAL SIGNS: T-max of 98.4, pulse of 69, blood pressure of 119/87 and 117/71, respirations of 18, O2 saturation of 97% on 4 liters. The patient's vital signs noted. HEENT: Head examination shows normocephalic and atraumatic. HEENT examination shows pink conjunctivae and anicteric sclerae. No oropharyngeal lesion. NECK: No neck rigidity. No audible carotid bruit or lymphadenopathy. CHEST: Examination shows kyphosis. BREASTS: Positive left mastectomy and left breast prosthesis. Lungs: Examination shows no wheezing, very decreased rhonchi and improved air entry. CARDIOVASCULAR: Examination shows S1 and S2, regular rhythm. GASTROINTESTINAL: Abdomen is soft. Positive bowel sounds. Nontender. No hepatosplenomegaly noted. No guarding, no rigidity, and no rebound tenderness. GENITALIA: Female. RECTAL: Examination is deferred. EXTREMITIES: Shows no pitting, no calf numbness, and no Homans' signs. VASCULAR: Examination shows palpable pulses. MUSCULOSKELETAL: Examination shows a body mass index of 26.4. NEUROLOGIC: The patient is alert, awake, and oriented x3. Cranial nerves II through XII grossly intact. Gait examination is independent. PSYCHIATRIC: Examination is positive for history of anxiety and insomnia. DIAGNOSTIC AND LABORATORY DATA: None from today. Echocardiogram results are available, which shows ejection fraction of 66%. Normal left ventricle ejection fraction, mildly thickened mitral valve. Grade I abnormal relaxation pattern noted. IMPRESSION AND PLAN: 1. Deconditioning. 2. Status post hypoxic respiratory failure (resolving). 3. Exercise-induced desaturation. 4. History of paroxysmal atrial fibrillation. 5. Leukocytosis with granulocytosis. 6. Hypoxemia. 7. Steroid-induced hyperglycemia. 8. Questionable prediabetes with hemoglobin A1c of 5.9. 9. Hypercholesterolemia with elevated LDL. 10. Left ventricular ejection fraction of 65%. 11. Grade I abnormal relaxation pattern. 12. Mildly thickened mitral valve. 13. Mild pulmonary hypertension with right ventricular systolic pressure of 34 mmHg. 14. Deconditioning. 15. Anxiety disorder. 16. History of left breast carcinoma status post mastectomy and left breast prosthesis. 17. Hypovitaminosis D. 18. Paroxysmal atrial fibrillation. 19. Nicotine dependence. 20. Bilateral multilobar atelectasis and multilobar subcentimeter pleural pulmonary nodules. PLAN: At this time, the patient is seen by Pulmonary, recommendations noted and reinforced to the patient. CURRENT MEDICATIONS: 1. Mucomyst nebulizer 20% 4 mL q. 6 hours. 2. DuoNeb nebulizer every 2 hours p.r.n. 3. Sotalol 80 mg daily. 4. Brovana 15 mcg q. 12 hours. 5. Doxycycline 100 mg p.o. q. 12 hours. 6. Drisdol 50,000 units p.o. weekly. 7. Lipitor 80 mg daily. 8. Lovenox 40 mg subcutaneous daily. 9. Nicotine patch 21 mg daily. 10. Phenergan with Codeine every 6 hours p.r.n. 11. Protonix 40 mg daily. 12. Pulmicort nebulizer 0.5 mg q. 12 hours. 13. Rocephin 1 g IV daily. 14. Solu-Medrol 30 mg IV q. 8 hours., which will be considered for tapering down. As the patient is requesting to be discharged home prior to the weekend. The patient is on Solu-Medrol 30 mg q. 8 hours. 15. Tessalon Perles 200 three times a day. 16. Xanax 0.25 q. 6 hours. p.r.n. 17. Zetia 10 mg daily. The patient is on BiPAP at night and chest PT. The patient is on BiPAP at 12/6, 30% FIO2 to keep an O2 saturation around 92% to 95%. The patient has been ordered chest PT every 6 hours, oxygen nasal cannula. Dictated and electronically signed, not read. Signing off Fernando Lyons MD Fernando Lyons MD
[2017-04-12 09:17] LABS: BASO # 0.01 K/mm3 (0.0-2.0); BASO % 0.1 % (0.0-3.0); EOS % 0.1 % (1.5-5.0); GRAN # 11.99 (1.4-6.5); GRAN % 90.1 % (50.0-68.0); LYMPH # 0.7 (1.2-3.4); LYMPH % 5.3 % (22.0-35.0); MEAN CELL VOLUME 97.8 fl (80.0-105.0); MEAN CORPUSCULAR HEMOGLOBIN 33.4 pg (25.0-35.0); MEAN CORPUSCULAR HGB CONC 34.2 g/dl (31.0-37.0); MEAN PLATELET VOLUME 10.6 fl (7.0-11.0); MONO # 0.6 (0.1-0.6); MONO % 4.4 % (1.0-6.0); PLATELET COUNT 288 10^3/uL (120.0-450.0); RED CELL DISTRIBUTION WIDTH 12.1 % (11.5-14.5); WHITE BLOOD COUNT 13.3 10^3/ul (4.5-11.0)
[2017-04-12 09:33] LABS: ALB/GLOB RATIO 1.4 (1.1-1.8); ALKALINE PHOSPHATASE 60 U/L (38-126); ALT/SGPT 27 U/L (7-56); AST/SGOT 37 U/L (14-36); BILIRUBIN,DIRECT 0.4 mg/dL (0.0-0.4); BILIRUBIN,TOTAL 0.7 mg/dL (0.2-1.3); BLOOD UREA NITROGEN 19 mg/dL (7-21); CALCIUM 9.3 mg/dL (8.4-10.5); CARBON DIOXIDE 29 mmol/L (21-33); CHLORIDE 101 mmol/L (98-107); CHOLESTEROL 248 mg/dL (130-200); GFR AFRICAN-AMERICAN > 60; GLUCOSE,RANDOM 164 mg/dL (70-110); MAGNESIUM 1.7 mg/dL (1.7-2.2); POTASSIUM 3.8 mmol/L (3.6-5.0); SODIUM 139 mmol/L (132-148); TOTAL PROTEIN 6.6 g/dL (5.8-8.3)
[2017-04-12 11:21] LABS: NEUTROPHIL 91 % (50.0-70.0); PLATELET ESTIMATE NORMAL (NORMAL)
[2017-04-13] MEDS: Promethazine/Cod 6.25mg-10mg/5ml Syr UD PO PRN ×4 (00:06→18:50)
[2017-04-13] MEDS: Nystatin 100,000 Units/ml Oral Susp 5 ml UD PO SCH ×5 (01:00→22:27)
[2017-04-13] MEDS: Albuterol-Ipratrop 3 mg / 0.5 (3 ml) UD IH SCH ×4 (02:26→20:47)
[2017-04-13] MEDS: Enoxaparin 40 mg Syringe SC SCH (05:18)
[2017-04-13] MEDS: Pantoprazole 40 mg EC Tab PO SCH ×2 (05:18→17:37)
[2017-04-13] MEDS: cefTRIAXone 1 gm 1 GM/100 ML BAG IVPB SCH (05:18)
[2017-04-13] MEDS: Arformoterol 15 mcg/2 ml Inh Sol IH SCH ×2 (07:41→20:46)
[2017-04-13] MEDS: Acetylcysteine 20% Inhal Soln (4ml) IH SCH ×3 (07:41→20:46)
[2017-04-13] MEDS: Budesonide 0.5 mg/2 ml Inhal Susp UD IH SCH ×2 (07:42→20:47)
--- NOTE | 2017-04-13 08:09 | CP.PCM.PN ---
Subjective - Date & Time of Evaluation Date of Evaluation: 04/13/17 Time of Evaluation: 07:50 - Subjective Subjective: (covering for Dr. Lyons) Patient is seen this morning. She states that she is feeling better, but gets short of breath when walking. Objective - Vital Signs/Intake and Output Vital Signs (last 24 hours): Temp Pulse Resp BP Pulse Ox 97.6 F 71 16 132/48 L 93 L 04/12/17 16:44 04/12/17 16:44 04/12/17 16:44 04/12/17 16:44 04/12/17 16:44 - Medications Medications: Current Medications Acetylcysteine (Acetylcysteine 20%) 4 ml IH [id number] [facility] PRN Reason: Protocol Last Admin: 04/13/17 07:41 Dose: 4 ml Albuterol/Ipratropium (Duoneb 3 Mg/0.5 Mg (3 Ml) Ud) 3 ml IH Q2H PRN; Protocol PRN Reason: Shortness of Breath Albuterol/Ipratropium (Duoneb 3 Mg/0.5 Mg (3 Ml) Ud) 3 ml IH [id number] [facility] PRN Reason: Protocol Last Admin: 04/13/17 07:41 Dose: 3 ml Alprazolam (Xanax) 0.25 mg PO Q6 PRN; Protocol PRN Reason: Anxiety Stop: 04/18/17 00:01 Last Admin: 04/13/17 05:47 Dose: 0.25 mg Arformoterol Tartrate (Brovana) 15 mcg IH [id number] [facility] PRN Reason: Protocol Last Admin: 04/13/17 07:41 Dose: 15 mcg Atorvastatin Calcium (Lipitor) 80 mg PO DIN [facility] Last Admin: 04/12/17 17:32 Dose: 80 mg Benzonatate (Tessalon Perles) 200 mg PO TID [facility] PRN Reason: Protocol Last Admin: 04/12/17 17:32 Dose: 200 mg Budesonide (Pulmicort Respules) 0.5 mg IH [id number] [place] PRN Reason: Protocol Last Admin: 04/13/17 07:42 Dose: 0.5 mg Doxycycline Hyclate (Doryx) 100 mg PO Q12 [facility] PRN Reason: Protocol Last Admin: 04/12/17 21:30 Dose: 100 mg Ezetimibe (Zetia) 10 mg PO DAILY [facility] PRN Reason: Protocol Last Admin: 04/12/17 10:48 Dose: 10 mg Enoxaparin Sodium (Lovenox) 40 mg SC 0600 [facility] PRN Reason: Protocol Last Admin: 04/13/17 05:18 Dose: 40 mg Ergocalciferol (Drisdol 50,000 Intl Units Cap) 1 cap PO Q7D [facility] PRN Reason: Protocol Ceftriaxone Sodium (Rocephin 1 Gram Ivpb (D5w)) 1 gm in 100 mls @ 100 mls/hr IVPB 0600 [facility] PRN Reason: Protocol Last Admin: 04/13/17 05:18 Dose: 100 mls/hr Methylprednisolone (Solu-Medrol) 30 mg IVP Q12 [facility] Last Admin: 04/12/17 21:31 Dose: 30 mg Nicotine (Nicoderm Cq) 1 patch TD DAILY [facility] PRN Reason: Protocol Last Admin: 04/12/17 10:47 Dose: 1 patch Nystatin (Nystatin Oral Susp) 5 ml PO QID [facility] Last Admin: 04/13/17 01:00 Dose: 5 ml Pantoprazole Sodium (Protonix Ec Tab) 40 mg PO 0600,1600 [facility] Last Admin: 04/13/17 05:18 Dose: 40 mg Promethazine HCl/Codeine (Phenergan/Codeine Oral Syrup) 5 ml PO Q6H PRN; Protocol PRN Reason: Cough and congestion Last Admin: 04/13/17 05:47 Dose: 5 ml Sotalol HCl (Betapace) 80 mg PO DAILY [facility] PRN Reason: Protocol Last Admin: 04/12/17 10:48 Dose: 80 mg - Labs Labs: 04/12/17 09:00 04/12/17 09:00 - Constitutional Appears: No Acute Distress - Head Exam Head Exam: ATRAUMATIC, NORMOCEPHALIC - Respiratory Exam Respiratory Exam: Clear to Ausculation Bilateral, NORMAL BREATHING PATTERN - Cardiovascular Exam Cardiovascular Exam: +S1, +S2 - GI/Abdominal Exam GI & Abdominal Exam: Soft, Normal Bowel Sounds. absent: Tenderness - Extremities Exam Extremities Exam: Normal Inspection - Neurological Exam Neurological Exam: Alert, Awake, CN II-XII Intact, Oriented x3 Assessment and Plan - Assessment and Plan (Free Text) Assessment: Exacerbation of Chronic obstructive pulmonary disease Paroxysmal Atrial Fibrillation HTN Plan: Patient is feeling better. She desaturates when ambulating. She is being set up for home oxygen therapy. continue respiratory nebulizer treatments. Steroids were tapered yesterday. continue solumedrol 30mg Q12h. continue physical therapy
--- NOTE | 2017-04-13 09:14 | PN ---
DATE: 04/13/2017 PULMONARY PROGRESS NOTE SUBJECTIVE: The patient appears very comfortable at rest. She is not short of breath. PHYSICAL EXAMINATION: VITAL SIGNS: (Last noted in the computer): Temperature is 97.6, pulse is 71, respirations are 16, and blood pressure is 132/48. Oxygen saturation on nasal cannula ranges between 93% to 100%. HEENT: Normocephalic and atraumatic. NECK: No JVD. CARDIOVASCULAR: Positive S1 and S2. No S3, gallop. LUNGS: Clear bilaterally this morning. EXTREMITIES: No clubbing, cyanosis or edema. Calves are nontender to palpation. GASTROINTESTINAL: Abdomen is soft, nontender and nondistended. Bowel sounds are positive. SKIN: No acute rash. NEUROLOGIC: Exam is limited at the present time. IMPRESSION 1. Acute bronchitis. 2. Advanced chronic obstructive pulmonary disease. 3. Hypoxemia. 4. Tiny pulmonary nodules. 5. Hypertension. PLAN: The patient appears very comfortable this morning. She is not short of breath at rest. She is much less dyspneic on exertion. She states to feeling much, much better overall. On physical exam, her lungs are now clear. In addition, the alveolar-arterial gradient is much less. I will continue the current nebulizer treatments and change to oral steroids this morning. The patient remains on antibiotic therapy. There are no temperatures noted. Clinical status of the patient is significantly improved overall. However, again, the future status/prognosis for this patient does remain guarded - as she does continue to have advanced lung disease. I will discuss the above with the attending physician. Matty Gimenez MD MTDRoma
[2017-04-13] MEDS: MethylPREDNISolone 40 mg Vial IVP SCH ×2 (11:00→22:27)
[2017-04-14] MEDS: Acetylcysteine 20% Inhal Soln (4ml) IH SCH ×4 (01:29→19:21)
[2017-04-14] MEDS: Albuterol-Ipratrop 3 mg / 0.5 (3 ml) UD IH SCH ×5 (01:29→19:22)
[2017-04-14] MEDS: Promethazine/Cod 6.25mg-10mg/5ml Syr UD PO PRN ×4 (01:53→23:10)
[2017-04-14] MEDS: Enoxaparin 40 mg Syringe SC SCH (05:07)
[2017-04-14] MEDS: cefTRIAXone 1 gm 1 GM/100 ML BAG IVPB SCH (05:07)
[2017-04-14] MEDS: Pantoprazole 40 mg EC Tab PO SCH ×2 (05:07→17:04)
[2017-04-14] MEDS: Arformoterol 15 mcg/2 ml Inh Sol IH SCH ×2 (08:25→19:22)
[2017-04-14] MEDS: Nystatin 100,000 Units/ml Oral Susp 5 ml UD PO SCH ×4 (10:14→21:51)
[2017-04-14] MEDS: Budesonide 0.5 mg/2 ml Inhal Susp UD IH SCH ×2 (11:05→19:23)
--- NOTE | 2017-04-14 14:31 | PN ---
DATE: 04/14/2017 SUBJECTIVE: The patient appears comfortable this morning. She is not short of breath at rest. PHYSICAL EXAMINATION: VITAL SIGNS: Temperature is 97.5, pulse 65, respirations 18, blood pressure 95/62. Oxygen saturation on nasal cannula is 94%. HEENT: Normocephalic, atraumatic. No JVD. CARDIOVASCULAR: Positive S1, S2. No S3 gallop. LUNGS: Clear bilaterally. GI: Abdomen is soft, nontender, and nondistended. Bowel sounds are positive. EXTREMITIES: No clubbing, cyanosis or edema. Calves are nontender to palpation. SKIN: No acute rash. NEUROLOGIC: Exam limited at the present time. IMPRESSION: 1. Acute bronchitis. 2. Advanced chronic obstructive pulmonary disease. 3. Hypoxemia. 4. Tiny pulmonary nodules. 5. Hypertension. PLAN: The patient appears very comfortable this morning. She is not short of breath at rest. She is much less dyspneic on exertion. She states to feeling much, much better overall. On physical exam, her lungs remain clear. In addition, the alveolar-arterial gradient is much less. I will continue the current nebulizer treatments and change back to oral steroids this morning. The patient remains on antibiotic therapy. There are no temperatures noted. Clinical status of the patient is significantly improved - compared to the initial presentation. I will discuss the above with the attending physician. Matty Gimenez MD MTDD
--- NOTE | 2017-04-14 15:59 | PN ---
DATE: 04/14/2017 LOCATION: The patient is seen in room 322, bed 2. SUBJECTIVE: The patient is seen sitting up in the bed ____. Overnight nurse's notes were reviewed. The patient refused BiPAP. The patient refused PEDRO stockings. The patient refused SCDs. The patient only continued to use oxygen nasal cannula. MEDICATIONS: The patient's current medications, 1. Mucomyst and DuoNeb nebulizer every 6 hours. 2. Sotalol 80 mg daily. 3. Brovana 15 mcg twice a day. 4. Doxycycline 100 mg p.o. q.12. 5. Drisdol 50,000 units weekly. 6. DuoNeb nebulizer every 6 hours with Mucomyst nebulizer 20% 4 mL. 7. Lipitor 80 mg daily. 8. Lovenox 40 mg subcu daily. 9. Nicotine patch 21 mg daily. 10. Nystatin suspension 5 mL q.i.d. ordered by medical doctor nuclear medicine. 11. Phenergan with Codeine q.6 hours p.r.n. 12. Steroid changed to prednisone 40 mg daily today by Pulmonary. 13. Protonix 40 mg daily. 14. Pulmicort nebulizer 0.5 mg q.12 hours. 15. Rocephin 1 g IV daily. 16. Tessalon Perles 200 three times a day. 17. Xanax 0.25 q.6 hours p.r.n. 18. Zetia 10 mg daily. 19. BiPAP 12/6, 30% FIO2 to keep oxygen saturation on 90 to 95%, which the patient is refusing. PHYSICAL EXAMINATION: VITAL SIGNS: T-max 98.9, pulse 65 to 70, blood pressure 121/77, respiration 18 to 20, O2 sat decreasing to 88% with exertion. The patient requires oxygen 2 to 3 L continuous. HEAD: Normocephalic, atraumatic. HEENT: Shows pink conjunctivae. Anicteric sclerae. No oropharyngeal lesion. No neck rigidity. No facial asymmetry. No oropharyngeal lesion. NECK: Shows no neck rigidity. No lymphadenopathy. No audible carotid bruit. CHEST: Kyphosis, positive left mastectomy, positive left breast prosthesis. LUNGS: Shows no wheezing, occasional rhonchi, upper lung cruz anteriorly, improved air entry. CARDIOVASCULAR: S1, S2, regular rhythm. No audible murmur, gallop, or rub. ABDOMEN: Soft, positive bowel sounds. No hepatosplenomegaly noted. No costovertebral angle tenderness. No guarding. No rigidity. No rebound tenderness. GENITALIA: Female. RECTAL: Deferred. EXTREMITIES: Shows no pitting edema. No calf numbness. No Homans' sign. NEUROLOGIC: The patient is alert, awake, oriented x3. Cranial nerves II through XII intact. The patient is ambulating independently without any assistance. The patient was observed ambulating in the hallway on TCU. The patient's diagnostic data reviewed. IMPRESSION: 1. Deconditioning. 2. Status post acute hypoxic respiratory failure. 3. Acute exacerbation of chronic obstructive pulmonary disease with hypoxemia. 4. History of poor compliance and noncompliance. 5. Active nicotine addiction and dependence. 6. Resolved [id number] hypoxic respiratory failure, bilevel positive airway pressure requiring. 7. Resolving acute exacerbation of chronic obstructive pulmonary disease with bronchospasm, wheezing, and hypoxemia. 8. Exercise-induced desaturation and hypoxemia. 9. Dyspnea on exertion. 10. Steroid-induced leukocytosis and granulocytosis. 11. Steroid-induced hyperglycemia. 12. Hypertriglyceridemia, hypercholesteremia with elevated low-density lipoprotein. 13. Hypovitaminosis D. 14. History of left breast carcinoma, status post mastectomy. 15. History of active nicotine addiction and smoking. 16. Bilateral multiple pulmonary nodule, subcentimeter pulmonary nodules, and bilateral multilobar atelectasis. PLAN: At this time, the patient's case is referred to geriatric social work professor for home oxygen and home nebulizer med compressor, which is not arranged yet. The patient cannot be discharged till home oxygen and home nebulizer are arranged. The patient is on chest PT q.6 hours, oxygen nasal cannula continuous, heart-healthy diet. The patient is ordered occupational therapy in the morning. The patient's case is referred to delinquency prevention social worker, occupational therapy, physical therapy. The patient is unable to be discharged today because of delay in the home oxygen and home nebulizer delivery, which is referred to [employer] Professor. The patient will be continued on above therapeutic interventions. The patient has been again counseled about cessation of smoking. The patient has been counseled about compliance. The patient has been advised to stop alcohol use. The patient is advised to stop smoking. The patient will be continued on above therapeutic intervention till the patient is on TCU. The patient will complete TCU stay as recommended. Dictated and electronically signed, not read. Fernando Lyons MD
[2017-04-15] MEDS: Acetylcysteine 20% Inhal Soln (4ml) IH SCH ×4 (02:01→20:12)
[2017-04-15] MEDS: cefTRIAXone 1 gm 1 GM/100 ML BAG IVPB SCH (05:36)
[2017-04-15] MEDS: Pantoprazole 40 mg EC Tab PO SCH ×2 (05:36→16:18)
[2017-04-15] MEDS: Enoxaparin 40 mg Syringe SC SCH (05:36)
[2017-04-15] MEDS: Promethazine/Cod 6.25mg-10mg/5ml Syr UD PO PRN ×3 (06:28→22:28)
[2017-04-15] MEDS: Albuterol-Ipratrop 3 mg / 0.5 (3 ml) UD IH SCH ×3 (07:18→20:14)
[2017-04-15] MEDS: Arformoterol 15 mcg/2 ml Inh Sol IH SCH ×2 (07:18→20:12)
[2017-04-15] MEDS: Budesonide 0.5 mg/2 ml Inhal Susp UD IH SCH ×2 (07:18→20:14)
--- NOTE | 2017-04-15 08:08 | CP.PCM.PN ---
Subjective - Date & Time of Evaluation Date of Evaluation: 04/15/17 Time of Evaluation: 07:30 - Subjective Subjective: (covering for Dr. Lyons) Patient is seen this morning in room 322 bed 2. She is feeling better. Objective - Vital Signs/Intake and Output Vital Signs (last 24 hours): Temp Pulse Resp BP Pulse Ox 97.5 F L 52 L 19 117/68 95 04/15/17 06:00 04/15/17 06:00 04/15/17 06:00 04/15/17 06:00 04/15/17 06:00 Intake and Output: 04/15/17 04/15/17 06:59 18:59 Intake Total 650 Output Total 0 Balance 650 - Medications Medications: Current Medications Acetylcysteine (Acetylcysteine 20%) 4 ml IH [id number] [facility] PRN Reason: Protocol Last Admin: 04/15/17 07:17 Dose: 4 ml Albuterol/Ipratropium (Duoneb 3 Mg/0.5 Mg (3 Ml) Ud) 3 ml IH Q2H PRN; Protocol PRN Reason: Shortness of Breath Albuterol/Ipratropium (Duoneb 3 Mg/0.5 Mg (3 Ml) Ud) 3 ml IH [id number] [facility] PRN Reason: Protocol Last Admin: 04/15/17 07:18 Dose: 3 ml Alprazolam (Xanax) 0.25 mg PO Q6 PRN; Protocol PRN Reason: Anxiety Stop: 04/18/17 00:01 Last Admin: 04/15/17 06:28 Dose: 0.25 mg Arformoterol Tartrate (Brovana) 15 mcg IH [id number] [facility] PRN Reason: Protocol Last Admin: 04/15/17 07:18 Dose: 15 mcg Atorvastatin Calcium (Lipitor) 80 mg PO DIN [facility] Last Admin: 04/14/17 17:04 Dose: 80 mg Benzonatate (Tessalon Perles) 200 mg PO TID [facility] PRN Reason: Protocol Last Admin: 04/14/17 17:04 Dose: 200 mg Budesonide (Pulmicort Respules) 0.5 mg IH [id number] [facility] PRN Reason: Protocol Last Admin: 04/15/17 07:18 Dose: 0.5 mg Doxycycline Hyclate (Doryx) 100 mg PO Q12 [facility] PRN Reason: Protocol Last Admin: 04/14/17 21:51 Dose: 100 mg Ezetimibe (Zetia) 10 mg PO DAILY [facility] PRN Reason: Protocol Last Admin: 04/14/17 10:13 Dose: 10 mg Enoxaparin Sodium (Lovenox) 40 mg SC 0600 [facility] PRN Reason: Protocol Last Admin: 04/15/17 05:36 Dose: 40 mg Ergocalciferol (Drisdol 50,000 Intl Units Cap) 1 cap PO Q7D [facility] PRN Reason: Protocol Ceftriaxone Sodium (Rocephin 1 Gram Ivpb (D5w)) 1 gm in 100 mls @ 100 mls/hr IVPB 0600 [facility] PRN Reason: Protocol Last Admin: 04/15/17 05:36 Dose: 100 mls/hr Nicotine (Nicoderm Cq) 1 patch TD DAILY [facility] PRN Reason: Protocol Last Admin: 04/14/17 10:14 Dose: 1 patch Nystatin (Nystatin Oral Susp) 5 ml PO QID [facility] Last Admin: 04/14/17 21:51 Dose: 5 ml Pantoprazole Sodium (Protonix Ec Tab) 40 mg PO 0600,1600 [facility] Last Admin: 04/15/17 05:36 Dose: 40 mg Prednisone (Prednisone Tab) 40 mg PO BRK [facility] Last Admin: 04/14/17 10:22 Dose: 40 mg Promethazine HCl/Codeine (Phenergan/Codeine Oral Syrup) 5 ml PO Q6H PRN; Protocol PRN Reason: Cough and congestion Last Admin: 04/15/17 06:28 Dose: 5 ml Sotalol HCl (Betapace) 80 mg PO DAILY [facility] PRN Reason: Protocol Last Admin: 04/14/17 10:14 Dose: 80 mg - Labs Labs: 04/12/17 09:00 04/12/17 09:00 - Constitutional Appears: No Acute Distress - Head Exam Head Exam: ATRAUMATIC, NORMOCEPHALIC - Respiratory Exam Respiratory Exam: Rhonchi, Wheezes, NORMAL BREATHING PATTERN - Cardiovascular Exam Cardiovascular Exam: +S1, +S2 - GI/Abdominal Exam GI & Abdominal Exam: Soft, Normal Bowel Sounds. absent: Tenderness - Extremities Exam Extremities Exam: Normal Inspection - Neurological Exam Neurological Exam: Alert, Awake, CN II-XII Intact, Oriented x3 Assessment and Plan - Assessment and Plan (Free Text) Assessment: COPD Exacerbation Paroxysmal AFib HTN Plan: Patient is currently on oral steroids. Few wheezes and rhonchi heard on exam. continue respiratory treatments via nebulizer. continue Sotalol for paroxysmal atrial fibrillation. Patient desaturates when ambulating. She is being set up for home oxygen.
--- NOTE | 2017-04-15 08:27 | PN ---
DATE: 04/15/2017 PULMONARY NOTE SUBJECTIVE: The patient appears very comfortable this morning. She is not short of breath at rest. PHYSICAL EXAMINATION: VITAL SIGNS: Temperature is 97.5, pulse 52, respirations 19, blood pressure 117/68. Oxygen saturation on nasal cannula is 95%. HEENT: Normocephalic, atraumatic. NECK: No JVD. CARDIOVASCULAR: Positive S1, S2. No S3 gallop. LUNGS: Clear bilaterally. EXTREMITIES: No clubbing, cyanosis or edema. Calves are nontender to palpation. GI: Abdomen is soft, nontender and nondistended. Bowel sounds are positive. SKIN: No acute rash. NEUROLOGIC: Exam limited at the present time. IMPRESSION: 1. Acute bronchitis. 2. Advanced chronic obstructive pulmonary disease. 3. Hypoxemia. 4. Tiny pulmonary nodules. 5. Hypertension. PLAN: The patient appears very comfortable this morning. She is not short of breath at rest. She does state to feeling much better overall. On physical exam, her lungs remain clear. Oxygen saturation on nasal cannula is 95%. I will continue the current nebulizer treatments and oral steroids (changed yesterday) for now. The patient remains on antibiotic therapy. There are no temperatures noted. Clinical status of the patient is significantly improved - compared to the initial presentation. However, again, the future status/prognosis for this female patient, with advanced lung disease, does remain guarded. I will discuss the above with the attending physician. Matty Gimenez MD MTDD
[2017-04-15] MEDS: Nystatin 100,000 Units/ml Oral Susp 5 ml UD PO SCH ×4 (09:59→21:37)
[2017-04-16] MEDS: Enoxaparin 40 mg Syringe SC SCH (05:21)
[2017-04-16] MEDS: cefTRIAXone 1 gm 1 GM/100 ML BAG IVPB SCH (05:21)
[2017-04-16] MEDS: Pantoprazole 40 mg EC Tab PO SCH (05:21)
[2017-04-16] MEDS: Promethazine/Cod 6.25mg-10mg/5ml Syr UD PO PRN ×2 (05:22→18:24)
[2017-04-16] MEDS: Albuterol-Ipratrop 3 mg / 0.5 (3 ml) UD IH SCH ×3 (07:34→19:40)
[2017-04-16] MEDS: Arformoterol 15 mcg/2 ml Inh Sol IH SCH ×2 (07:34→19:39)
[2017-04-16] MEDS: Acetylcysteine 20% Inhal Soln (4ml) IH SCH ×3 (07:34→19:39)
[2017-04-16] MEDS: Budesonide 0.5 mg/2 ml Inhal Susp UD IH SCH ×2 (07:35→19:40)
--- NOTE | 2017-04-16 08:16 | CP.PCM.PN ---
Subjective - Date & Time of Evaluation Date of Evaluation: 04/16/17 Time of Evaluation: 08:00 - Subjective Subjective: (covering for Dr. Lyons) Patient seen this morning. She is feeling good. She wants to go home. Objective - Vital Signs/Intake and Output Vital Signs (last 24 hours): Temp Pulse Resp BP Pulse Ox 98.2 F 58 L 20 121/67 93 L 04/16/17 06:00 04/16/17 06:00 04/16/17 06:00 04/16/17 06:00 04/16/17 06:00 - Medications Medications: Current Medications Acetylcysteine (Acetylcysteine 20%) 4 ml IH [id number] ANGLE PRN Reason: Protocol Last Admin: 04/16/17 07:34 Dose: 4 ml Albuterol/Ipratropium (Duoneb 3 Mg/0.5 Mg (3 Ml) Ud) 3 ml IH Q2H PRN; Protocol PRN Reason: Shortness of Breath Albuterol/Ipratropium (Duoneb 3 Mg/0.5 Mg (3 Ml) Ud) 3 ml IH [id number] ANGLE PRN Reason: Protocol Last Admin: 04/16/17 07:34 Dose: 3 ml Alprazolam (Xanax) 0.25 mg PO Q6 PRN; Protocol PRN Reason: Anxiety Stop: 04/18/17 00:01 Last Admin: 04/16/17 05:22 Dose: 0.25 mg Arformoterol Tartrate (Brovana) 15 mcg IH [id number] ANGLE PRN Reason: Protocol Last Admin: 04/16/17 07:34 Dose: 15 mcg Atorvastatin Calcium (Lipitor) 80 mg PO DIN [facility] Last Admin: 04/15/17 17:29 Dose: 80 mg Benzonatate (Tessalon Perles) 200 mg PO TID [place]GLE PRN Reason: Protocol Last Admin: 04/15/17 17:30 Dose: 200 mg Budesonide (Pulmicort Respules) 0.5 mg IH [id number] ANGLE PRN Reason: Protocol Last Admin: 04/16/17 07:35 Dose: 0.5 mg Doxycycline Hyclate (Doryx) 100 mg PO Q12 [place]GLE PRN Reason: Protocol Last Admin: 04/15/17 21:37 Dose: 100 mg Ezetimibe (Zetia) 10 mg PO DAILY [facility] PRN Reason: Protocol Last Admin: 04/15/17 10:01 Dose: 10 mg Enoxaparin Sodium (Lovenox) 40 mg SC 0600 [facility] PRN Reason: Protocol Last Admin: 04/16/17 05:21 Dose: 40 mg Ergocalciferol (Drisdol 50,000 Intl Units Cap) 1 cap PO Q7D [facility] PRN Reason: Protocol Ceftriaxone Sodium (Rocephin 1 Gram Ivpb (D5w)) 1 gm in 100 mls @ 100 mls/hr IVPB 0600 [facility] PRN Reason: Protocol Last Admin: 04/16/17 05:21 Dose: 100 mls/hr Nicotine (Nicoderm Cq) 1 patch TD DAILY [facility] PRN Reason: Protocol Last Admin: 04/15/17 09:58 Dose: 1 patch Nystatin (Nystatin Oral Susp) 5 ml PO QID [facility] Last Admin: 04/15/17 21:37 Dose: 5 ml Pantoprazole Sodium (Protonix Ec Tab) 40 mg PO 0600,1600 [facility] Last Admin: 04/16/17 05:21 Dose: 40 mg Prednisone (Prednisone Tab) 40 mg PO BRK [facility] Last Admin: 04/15/17 08:35 Dose: 40 mg Promethazine HCl/Codeine (Phenergan/Codeine Oral Syrup) 5 ml PO Q6H PRN; Protocol PRN Reason: Cough and congestion Last Admin: 04/16/17 05:22 Dose: 5 ml Sotalol HCl (Betapace) 80 mg PO DAILY [facility] PRN Reason: Protocol Last Admin: 04/15/17 10:00 Dose: 80 mg - Labs Labs: 04/12/17 09:00 04/12/17 09:00 - Constitutional Appears: No Acute Distress - Head Exam Head Exam: ATRAUMATIC, NORMOCEPHALIC - Respiratory Exam Respiratory Exam: Clear to Ausculation Bilateral, NORMAL BREATHING PATTERN - Cardiovascular Exam Cardiovascular Exam: +S1, +S2 - GI/Abdominal Exam GI & Abdominal Exam: Soft, Normal Bowel Sounds. absent: Tenderness - Extremities Exam Extremities Exam: Normal Inspection - Neurological Exam Neurological Exam: Alert, Awake, CN II-XII Intact, Oriented x3 Assessment and Plan - Assessment and Plan (Free Text) Assessment: Exacerbation of COPD HTN Paroxysmal atrial fibrillation Plan: Patient is now on oral steroids. She finished course of antibiotics. Awaiting set up of home oxygen. Patient advised to stop smoking. continue nicotine patch.
--- NOTE | 2017-04-16 08:35 | PN ---
PULMONARY NOTE DATE: 04/16/2017 SUBJECTIVE: The patient appears very comfortable this morning. She is not short of breath at rest. PHYSICAL EXAMINATION VITAL SIGNS: Temperature is 98.2, pulse 58, respirations 18, blood pressure 121/67. Oxygen saturation on nasal cannula is 93-95%. HEENT: Normocephalic, atraumatic. No JVD. Cardiovascular: Positive S1, S2. No S3 gallop. LUNGS: Clear bilaterally. EXTREMITIES: No clubbing, cyanosis or edema. Calves are nontender to palpation. GI: Abdomen is soft, nontender and nondistended. Bowel sounds are positive. SKIN: No acute rash. NEUROLOGIC: Limited at the present time. IMPRESSION: 1. Acute bronchitis. 2. Advanced chronic obstructive pulmonary disease. 3. Hypoxemia. 4. Tiny pulmonary nodules. 5. Hypertension. PLAN: The patient appears very comfortable this morning. She is not short of breath at rest. She is significantly less short of breath on exertion. She does state to feeling much, much better overall. On physical exam, her lungs remain clear. Oxygen saturation on nasal cannula is 93-95%. I will continue the current nebulizer treatments and oral steroids for now. The patient remains on antibiotic therapy. There are no temperatures noted. The patient is for probable discharge in the near future. Her clinical status has significantly improved - while in the hospital. However, again, she does have advanced lung disease, and her future status/prognosis does remain somewhat guarded. I will discuss the above with the attending physician. Matty Gimenez MD MTDD
[2017-04-16] MEDS: Nystatin 100,000 Units/ml Oral Susp 5 ml UD PO SCH ×3 (10:19→18:09)
[2017-04-16] MEDS ORDERED: Pneumococcal 23-Valent Vaccine IM ONE (16:20)
[2017-04-16 18:07] VITALS: BP 107/67; PULSE 74; RESP 15; TEMP 97.7; O2SAT 94
[2017-04-17] MEDS ORDERED: Ergocalciferol 50,000 Intl Units Cap PO SCH (10:00)
== END 2017-04-16 20:16 | disposition home or self-care (01) | DRG 190 ==
LOC: TRCU 17:37
PROVIDERS: ADMIT Internal Medicine; ATTEND Internal Medicine
PROC: F07Z9ZZ Gait Training/Functional Ambulation Treatment (ICD-10-PCS; principal; 2017-04-11)
PROC: F07M6ZZ Therapeutic Exercise Treatment of Musculoskeletal System - Whole Body (ICD-10-PCS; 2017-04-11)
DX: J44.1 Chronic obstructive pulmonary disease with (acute) exacerbation (principal); J96.21 Acute and chronic respiratory failure with hypoxia; I27.20 Pulmonary hypertension, unspecified; J98.11 Atelectasis; J44.0 Chronic obstructive pulmonary disease with (acute) lower respiratory infection; J20.9 Acute bronchitis, unspecified; J43.2 Centrilobular emphysema; I48.0 Paroxysmal atrial fibrillation; K58.9 Irritable bowel syndrome, unspecified; R73.03 Prediabetes; K76.0 Fatty (change of) liver, not elsewhere classified; I25.10 Atherosclerotic heart disease of native coronary artery without angina pectoris; T38.0X5A Adverse effect of glucocorticoids and synthetic analogues, initial encounter; Z53.20 Procedure and treatment not carried out because of patient's decision for unspecified reasons; Z82.3 Family history of stroke; Z82.49 Family history of ischemic heart disease and other diseases of the circulatory system; F41.9 Anxiety disorder, unspecified; F17.200 Nicotine dependence, unspecified, uncomplicated; E78.5 Hyperlipidemia, unspecified; E78.1 Pure hyperglyceridemia; E78.00 Pure hypercholesterolemia, unspecified; E55.9 Vitamin D deficiency, unspecified; I10 Essential (primary) hypertension; Z85.3 Personal history of malignant neoplasm of breast; Z87.442 Personal history of urinary calculi; Z90.12 Acquired absence of left breast and nipple; Z91.19 Patient's noncompliance with other medical treatment and regimen; Z98.82 Breast implant status